=== PATIENT | male | born 1955 | race American Indian/Alaskan Native ===

== ENCOUNTER 2016-12-12 12:48 | Inpatient (IN) | payer OTHER ==
[2016-12-12] MEDS ORDERED: Sodium Chloride 0.9% 1,000 ML IV ONE (13:32)
[2016-12-12] MEDS ORDERED: Sodium Chloride 0.9% 1,000 ML ONE (13:47)
--- NOTE | 2016-12-12 13:55 | C.PDOC ---
History Of Present Illness 61-year-old male, PMHx includes Prostate CA and Chronic Pain, presents to the emergency department with complaints of weakness. Patient states he was walking to the pharmacy today when he developed generalized weakness, resulting in him coming to the ED for evaluation. States he is currently taking Percocet TID for chronic pain, and usually drinks 1-2 beers a day. Patient notes going into withdrawal, after not taking the Percocet for a few days, and he is also requesting detox. Denies dizziness, light headedness, chest pain, or any other associated symptoms. No other complaints at this time. Time Seen by Provider: 12/12/16 13:21 Chief Complaint (Nursing): Weakness/Neurological Deficit History Per: Patient History/Exam Limitations: no limitations Onset/Duration Of Symptoms: Hrs Current Symptoms Are (Timing): Still Present Past Medical History Reviewed: Historical Data, Nursing Documentation, Vital Signs Vital Signs: Last Vital Signs Temp 98.2 F 12/12/16 12:58 Pulse 83 12/12/16 12:58 Resp 16 12/12/16 12:58 BP 116/72 12/12/16 12:58 Pulse Ox 100 12/12/16 13:56 - Medical History PMH: Asthma - [facility] Procedures APPLICATION OF SPLINT (11/24/12) PSYCHIAT DRUG THERAP NEC (03/10/07) Family History: States: No Known Family Hx - Social History Hx Tobacco Use: Yes Hx Alcohol Use: Yes Hx Substance Use: No - Immunization History Hx Tetanus Toxoid Vaccination: No Hx Influenza Vaccination: No Hx Pneumococcal Vaccination: No Review Of Systems Except As Marked, All Systems Reviewed And Found Negative. Constitutional: Positive for: Weakness (generalized). Negative for: Fever Cardiovascular: Negative for: Chest Pain Respiratory: Negative for: Shortness of Breath Gastrointestinal: Negative for: Nausea, Vomiting Physical Exam - Physical Exam Appears: Non-toxic, No Acute Distress Skin: Warm, Dry, No Rash Head: Atraumatic, Normacephalic Eye(s): bilateral: Normal Inspection, PERRL Nose: Normal Oral Mucosa: Moist Lips: Normal Appearing Neck: Normal ROM Chest: Symmetrical Cardiovascular: Rhythm Regular, No Murmur Respiratory: Normal Breath Sounds, No Accessory Muscle Use Gastrointestinal/Abdominal: Soft, No Tenderness Extremity: Normal ROM Neurological/Psych: Oriented x3, Normal Speech, Other (No focal deficit) ED Course And Treatment - Laboratory Results Result Diagrams: 12/12/16 13:58 12/12/16 13:58 Lab Interpretation: Abnormal (WBC 2.4 Hgb 11.4,) O2 Sat by Pulse Oximetry: 100 Pulse Ox Interpretation: Normal Reevaluation Time: 15:27 Reassessment Condition: Improved (after IV fluids and food.) - Physician Consult Information Physician Contacted: Yehuda Hi Outcome Of Conversation: Patient to be admitted for weakness, neutropenia and opiate detox. Disposition - Disposition Disposition: HOSPITALIZED Disposition Time: 15:28 Condition: STABLE Instructions: Weakness (ED) - POA Present On Arrival: None - Clinical Impression Clinical Impression: Weakness generalized, Prostate cancer, Opiate dependence - Scribe Statement The provider has reviewed the documentation as recorded by the Scribe (Flavio Arevalo) All medical record entries made by the Scribe were at my direction and personally dictated by me. I have reviewed the chart and agree that the record accurately reflects my personal performance of the history, physical exam, medical decision making, and the department course for this patient. I have also personally directed, reviewed, and agree with the discharge instructions and disposition.
[2016-12-12 14:02] LABS: BASO % 0.7 % (0.0-2.0); EOS % 0.7 % (0.0-4.0); HEMOGLOBIN 11.4 g/dL (12.0-18.0); LYMPH # 0.8 K/uL (1.0-4.3); MEAN CELL VOLUME 94.9 fL (80.0-94.0); MEAN CORPUSCULAR HEMOGLOBIN 32.1 pg (27.0-31.0); MEAN CORPUSCULAR HGB CONC 33.8 g/dL (33.0-37.0); MEAN PLATELET VOLUME 9.1 fL (7.2-11.7); MONO # 0.4 K/uL (0.0-0.8); MONO % 14.6 % (0.0-10.0); NEUT # 1.2 K/uL (1.8-7.0); NRBC % 0.3 % (0.0-2.0); RBC 3.56 Mil/uL (4.40-5.90); RED CELL DISTRIBUTION WIDTH 14.5 % (11.5-14.5); WHITE BLOOD COUNT 2.4 K/uL (4.8-10.8)
[2016-12-12 14:32] LABS: ALBUMIN 3.7 g/dL (3.5-5.0)
[2016-12-12 14:35] LABS: ALB/GLOB RATIO 1.5 (1.0-2.1); AST/SGOT 51 U/L (17-59); BLOOD UREA NITROGEN 11 mg/dL (9-20); GFR AFRICAN-AMERICAN > 60; GFR NON-AFRICAN AMERICAN > 60
[2016-12-12 14:36] LABS: ALT/SGPT 55 U/L (21-72); CALCIUM 8.7 mg/dl (8.6-10.4)
[2016-12-12 16:09] LABS: SQUAMOUS EPITHIAL < 1 /hpf (0-5); URINE BILIRUBIN 1+ (NEGATIVE); URINE BLOOD NEGATIVE (NEGATIVE); URINE CLARITY Clear (Clear); URINE COLOR Yellow (YELLOW); URINE GLUCOSE (UA) NORMAL (Normal); URINE LEUKOCYTE ESTERASE NEG Leu/uL (Negative); URINE NITRATE NEGATIVE (NEGATIVE); URINE PROTEIN 1+ mg/dL (NEGATIVE)
[2016-12-12 16:10] LABS: BARBITURATES, UR NEGATIVE (NEGATIVE)
[2016-12-12 16:11] LABS: BENZODIAZEPINES, UR NEGATIVE (NEGATIVE)
[2016-12-12 16:15] LABS: PHENCYCLIDINE, UR NEGATIVE (NEGATIVE)
[2016-12-12 16:16] LABS: OPIATES, UR POSITIVE (NEGATIVE)
[2016-12-12] MEDS ORDERED: Folic Acid 1 MG, Thiamine 100 MG, Multivitamin (MVI) 10 ML in Dextrose 5% In Water 1,00... IV SCH (21:00)
[2016-12-13 07:30] LABS: MEAN PLATELET VOLUME 9.5 fL (7.2-11.7)
[2016-12-13 07:50] LABS: HEMOGLOBIN 11.4 g/dL (12.0-18.0); MEAN CELL VOLUME 94.4 fL (80.0-94.0); MEAN CORPUSCULAR HEMOGLOBIN 32.1 pg (27.0-31.0); RBC 3.56 Mil/uL (4.40-5.90); RED CELL DISTRIBUTION WIDTH 14.6 % (11.5-14.5)
[2016-12-13 07:51] LABS: WHITE BLOOD COUNT 11.7 K/uL (4.8-10.8)
[2016-12-13 08:12] LABS: GFR AFRICAN-AMERICAN > 60; GFR NON-AFRICAN AMERICAN > 60
[2016-12-13 08:13] LABS: BLOOD UREA NITROGEN 11 mg/dL (9-20); CALCIUM 8.7 mg/dl (8.6-10.4)
[2016-12-13] MEDS ORDERED: Albuterol-Ipratrop 3 mg / 0.5 (3 ml) UD INH PRN (08:30)
[2016-12-13] MEDS: Enoxaparin 40 mg Syringe SC SCH (09:43)
[2016-12-13] MEDS ORDERED: Potassium Chloride 20 mEq ER Tab PO ONE (10:00)
[2016-12-13] MEDS ORDERED: Tramadol 25 mg PO SCH (10:00)
[2016-12-13] MEDS ORDERED: Pneumococcal 23-Valent Vaccine IM ONE (10:00)
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
[2016-12-13] MEDS: Tramadol 25 mg PO PRN (16:34)
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
[2016-12-14] MEDS ORDERED: Folic Acid 1 MG, Thiamine 100 MG, Multivitamin (MVI) 10 ML in Dextrose 5% In Water 1,00... IV SCH ×2 (02:45→11:45)
[2016-12-14] MEDS: Tramadol 25 mg PO PRN (06:27)
[2016-12-14 07:27] LABS: BASO # 0.4 K/uL (0.0-0.2); EOS # 0.1 K/uL (0.0-0.7); EOS % 0.2 % (0.0-4.0); HEMOGLOBIN 10.8 g/dL (12.0-18.0); LYMPH # 3.7 K/uL (1.0-4.3); MEAN CELL VOLUME 96.1 fL (80.0-94.0); MEAN CORPUSCULAR HEMOGLOBIN 31.2 pg (27.0-31.0); MEAN CORPUSCULAR HGB CONC 32.5 g/dL (33.0-37.0); MEAN PLATELET VOLUME 8.9 fL (7.2-11.7); MONO # 0.1 K/uL (0.0-0.8); MONO % 0.3 % (0.0-10.0); NEUT # 37.1 K/uL (1.8-7.0); NEUT % 89.5 % (50.0-75.0); NRBC % 0.1 % (0.0-2.0); PLATELET COUNT 237 K/uL (130-400); RBC 3.48 Mil/uL (4.40-5.90); RED CELL DISTRIBUTION WIDTH 15.4 % (11.5-14.5)
[2016-12-14 07:40] LABS: WHITE BLOOD COUNT 41.4 K/uL (4.8-10.8)
[2016-12-14 07:42] LABS: GFR AFRICAN-AMERICAN > 60; GFR NON-AFRICAN AMERICAN > 60
[2016-12-14 07:43] LABS: BLOOD UREA NITROGEN 11 mg/dL (9-20)
[2016-12-14 07:44] LABS: CALCIUM 8.7 mg/dl (8.6-10.4)
[2016-12-14] MEDS: Enoxaparin 40 mg Syringe SC SCH ×2 (08:31→09:15)
[2016-12-14 08:40] LABS: LYMPHOCYTE 11 % (20-40); NEUTROPHIL 25 % (50-75); TOTAL CELLS COUNTED 100
[2016-12-14 08:41] LABS: MONOCYTE 11 % (0-10)
[2016-12-14 08:42] LABS: MYELOCYTE 14 % (0-0); PLATELET ESTIMATE NORMAL (NORMAL)
[2016-12-14 08:44] LABS: METAMYELOCYTE 8 % (0-0); PROMYELOCYTE 10 % (0-0); REACTIVE LYMPHOCYTES 9 % (0-0)
[2016-12-14 08:45] LABS: ANISOCYTOSIS SLIGHT; POIKILOCYTOSIS SLIGHT
[2016-12-14 08:46] LABS: BURR CELLS SLIGHT; HYPOCHROMIC SLIGHT
[2016-12-14 08:47] LABS: LARGE PLATELETS PRESENT; MICROCYTOSIS SLIGHT; SMUDGE CELLS PRESENT; TARGET CELLS SLIGHT
[2016-12-14 08:51] LABS: BANDS 12 % (0-2)
[2016-12-14 10:00] VITALS: BP 149/76; PULSE 76; RESP 23; TEMP 98.2; O2SAT 97
[2016-12-14 11:46] LABS: BASO # 0.4 K/uL (0.0-0.2); BASO % 0.7 % (0.0-2.0); EOS # 0.1 K/uL (0.0-0.7); EOS % 0.1 % (0.0-4.0); HEMOGLOBIN 11.7 g/dL (12.0-18.0); LYMPH # 4.4 K/uL (1.0-4.3); LYMPH % 8.2 % (20.0-40.0); MEAN CELL VOLUME 96.2 fL (80.0-94.0); MEAN CORPUSCULAR HEMOGLOBIN 30.6 pg (27.0-31.0); MEAN CORPUSCULAR HGB CONC 31.8 g/dL (33.0-37.0); MEAN PLATELET VOLUME 9.3 fL (7.2-11.7); MONO # 0.2 K/uL (0.0-0.8); MONO % 0.3 % (0.0-10.0); NEUT # 48.6 K/uL (1.8-7.0); NEUT % 90.7 % (50.0-75.0); NRBC % 0.1 % (0.0-2.0); PLATELET COUNT 269 K/uL (130-400); RBC 3.81 Mil/uL (4.40-5.90); RED CELL DISTRIBUTION WIDTH 15.2 % (11.5-14.5)
[2016-12-14 11:53] LABS: WHITE BLOOD COUNT 53.6 K/uL (4.8-10.8)
[2016-12-14 12:25] LABS: BANDS 13 % (0-2); LYMPHOCYTE 7 % (20-40); METAMYELOCYTE 8 % (0-0); MONOCYTE 16 % (0-10); MYELOCYTE 16 % (0-0); NEUTROPHIL 31 % (50-75); PROMYELOCYTE 7 % (0-0); REACTIVE LYMPHOCYTES 2 % (0-0); TOTAL CELLS COUNTED 100
[2016-12-14 12:26] LABS: ANISOCYTOSIS SLIGHT; HYPOCHROMIC SLIGHT; PLATELET ESTIMATE NORMAL (NORMAL); POIKILOCYTOSIS SLIGHT
[2016-12-14 12:27] LABS: LARGE PLATELETS PRESENT; SMUDGE CELLS PRESENT; TARGET CELLS SLIGHT; TEARDROP CELLS SLIGHT
--- NOTE | 2016-12-14 12:37 | PCM.PYCHPN ---
Psychiatric Progress Note - Psychiatric Progress Note Patient seen today, length of contact: 16 min Patient Chief Complaint: "I'm better" Problems Identified/Issues Discussed: The pt is seen, chart reviewed, case discussed with staff. Support given, CBT and AL used briefly No new symptoms reported, improving slowly and needs more time No SEs from medications, risks discussed. After care discussed and he is not very interested in anything but he claims he will stay clean. How to dispose his Oxycontins safely discussed (he will return them to a pharmacy or precicnt) His wbc is very high - [employer] knows Psych will sign off as he is stable and has one last dose of methadone in AM Medication Change: Yes (detox changes daily) Medical Record Reviewed: Yes Mental Status Examination - Cognitive Function Orientation: Person, Place, Situation, Time - Mood Mood: Anxious - Affect Affect: Depressed - Formal Thought Process Formal Thought Process: No Impairment Goal/Treatment Plan - Goal/Treatment Plan Need for Continued Stay: Other Progress Toward Problem(s) and Goals/Treatment Plan: Methadone detox ending tomorrow Gabapentin for augmentation As needed meds and vitamins AL for abstinence and CBT for relapse prevention Support and psychoeducation Consider and encourage MAT Psych will sign off
== END 2016-12-14 13:30 | disposition left against medical advice (07) | DRG 743 ==
LOC: C.ER 12:48 → C.3T 15:30 → C.9E 17:32 → C.3T 18:53 → OBSVTOIN 12-13 11:17
PROVIDERS: ADMIT Internal Medicine; ATTEND Internal Medicine
PROC: HZ56ZZZ Individual Psychotherapy for Substance Abuse Treatment, Psychoeducation (ICD-10-PCS; principal; 2016-12-13)
PROC: HZ59ZZZ Individual Psychotherapy for Substance Abuse Treatment, Supportive (ICD-10-PCS; 2016-12-13)
PROC: HZ2ZZZZ Detoxification Services for Substance Abuse Treatment (ICD-10-PCS; 2016-12-13)
PROC: HZ93ZZZ Pharmacotherapy for Substance Abuse Treatment, Antabuse (ICD-10-PCS; 2016-12-13)
DX: F11.23 Opioid dependence with withdrawal (principal); F17.210 Nicotine dependence, cigarettes, uncomplicated; G89.29 Other chronic pain; R53.1 Weakness; Z85.46 Personal history of malignant neoplasm of prostate; M54.9 Dorsalgia, unspecified

== ENCOUNTER 2017-05-09 19:12 | Inpatient (IN) | payer OTHER ==
--- NOTE | 2017-05-09 20:36 | C.PDOC ---
History Of Present Illness 61 year old male presents to the ED c/o productive cough with yellowish sputum. Patient also c/o numbness in his legs, patient reports having bone cancer has been on chemo for 18 months he states he called his PMD today who told him to come to the ED for evaluation. Patient states also he wants detox for alcohol consumption he states he drinks everyday. Patient denies fever, nausea, vomit, abdominal pain, back pain, headache. Time Seen by Provider: 05/09/17 20:11 Chief Complaint (Nursing): Lower Extremity Problem/Injury History Per: Patient History/Exam Limitations: no limitations Onset/Duration Of Symptoms: Days Current Symptoms Are (Timing): Gone Recent travel outside of the [place]: No Additional History Per: Patient Past Medical History Reviewed: Historical Data, Nursing Documentation, Vital Signs Vital Signs: Last Vital Signs Temp 100.0 F H 05/09/17 23:48 Pulse 108 H 05/09/17 23:48 Resp 18 05/09/17 23:48 BP 129/69 05/09/17 23:48 Pulse Ox 90 L 05/09/17 23:48 - Medical History PMH: Arthritis (BACK), Asthma Surgical History: No Surg Hx - [facility] Procedures APPLICATION OF SPLINT (11/24/12) DETOXIFICATION SERVICES FOR SUBSTANCE ABUSE TREATMENT (12/13/16) INDIV PSYCHOTHERAPY FOR SUBSTANCE ABUSE TREATMENT, SUPPORT (12/13/16) INDIV PSYCHOTHERAPY FOR SUBSTANCE ABUSE, PSYCHOEDUCATION (12/13/16) PHARMACOTHERAPY FOR SUBSTANCE ABUSE TREATMENT, ANTABUSE (12/13/16) PSYCHIAT DRUG THERAP NEC (03/10/07) Family History: States: Unknown Family Hx - Social History Hx Tobacco Use: Yes Hx Alcohol Use: Yes (2 beers/day) Hx Substance Use: Yes (cocaine) - Immunization History Hx Tetanus Toxoid Vaccination: No Hx Influenza Vaccination: No Hx Pneumococcal Vaccination: No Review Of Systems Constitutional: Negative for: Fever, Chills Cardiovascular: Negative for: Chest Pain, Palpitations Respiratory: Positive for: Cough, Sputum. Negative for: Shortness of Breath Gastrointestinal: Negative for: Nausea, Vomiting, Abdominal Pain Skin: Negative for: Rash Neurological: Positive for: Weakness. Negative for: Numbness Physical Exam - Physical Exam Appears: Non-toxic, No Acute Distress Skin: Normal Color, Warm, Dry Head: Atraumatic, Normacephalic Nose: No Discharge Oral Mucosa: Moist Neck: Normal ROM, Supple Chest: Symmetrical Cardiovascular: Rhythm Regular, No Murmur Respiratory: Normal Breath Sounds, No Rales, No Rhonchi, No Wheezing Gastrointestinal/Abdominal: Soft, No Tenderness, No Distention, No Rebound Extremity: Normal ROM, No Pedal Edema, No Calf Tenderness, No Swelling Neurological/Psych: Oriented x3, Normal Speech, Normal Cognition Gait: Steady ED Course And Treatment - Laboratory Results Result Diagrams: 05/09/17 20:45 05/09/17 20:45 O2 Sat by Pulse Oximetry: 95 (On RA) Pulse Ox Interpretation: Normal Medical Decision Making Medical Decision Making: Impression : productive cough, detox request Plan: * Blood work * UA * CXR Disposition Discussed With Dr.: Elijah Galindo Jr. - Disposition Disposition: HOSPITALIZED Disposition Time: 13:50 Condition: STABLE Forms: [facility] (Serbian) - Clinical Impression Clinical Impression: Leukocytosis, Alcoholism - Scribe Statement The provider has reviewed the documentation as recorded by the Scribe Eleazar Moon All medical record entries made by the Scribe were at my direction and personally dictated by me. I have reviewed the chart and agree that the record accurately reflects my personal performance of the history, physical exam, medical decision making, and the department course for this patient. I have also personally directed, reviewed, and agree with the discharge instructions and disposition.
[2017-05-09 21:02] LABS: BASO # 0.1 K/uL (0.0-0.2); BASO % 0.4 % (0.0-2.0); EOS # 0.1 K/uL (0.0-0.7); EOS % 0.3 % (0.0-4.0); HEMATOCRIT 34.1 % (35.0-51.0); LYMPH # 1.8 K/uL (1.0-4.3); LYMPH % 6.1 % (20.0-40.0); MEAN CELL VOLUME 95.7 fL (80.0-94.0); MEAN CORPUSCULAR HEMOGLOBIN 31.8 pg (27.0-31.0); MEAN CORPUSCULAR HGB CONC 33.2 g/dL (33.0-37.0); MEAN PLATELET VOLUME 8.7 fL (7.2-11.7); MONO # 0.5 K/uL (0.0-0.8); MONO % 1.7 % (0.0-10.0); NRBC % 0.2 % (0.0-2.0); PLATELET COUNT 251 K/uL (130-400); RED CELL DISTRIBUTION WIDTH 14.4 % (11.5-14.5); WHITE BLOOD COUNT 30.2 K/uL (4.8-10.8)
[2017-05-09 21:05] LABS: ALCOHOL SERUM 85 mg/dl (0-10); ALKALINE PHOSPHATASE 113 U/L (38-126); ALT/SGPT 56 U/L (21-72); AST/SGOT 46 U/L (17-59); BILIRUBIN,TOTAL 0.4 mg/dL (0.2-1.3); BLOOD UREA NITROGEN 11 mg/dL (9-20); CALCIUM 8.1 mg/dl (8.6-10.4); CARBON DIOXIDE 30 mmol/L (22-30); CHLORIDE 93 mmol/L (98-107); GFR AFRICAN-AMERICAN > 60; GLUCOSE,RANDOM 94 mg/dL (75-110); POTASSIUM 3.5 mmol/L (3.6-5.2); SODIUM 133 mmol/L (132-148)
[2017-05-09 21:10] LABS: ALB/GLOB RATIO 1.9 (1.0-2.1)
[2017-05-09 21:15] LABS: RBC URINE 5 /hpf (0-3); URINE BILIRUBIN NEGATIVE (NEGATIVE); URINE BLOOD NEGATIVE (NEGATIVE); URINE COLOR Yellow (YELLOW); URINE GLUCOSE (UA) NORMAL (Normal); URINE HYALINE CAST 0-2 /lpf (0-2); URINE KETONE TRACE mg/dL (NEGATIVE); URINE LEUKOCYTE ESTERASE NEG Leu/uL (Negative); URINE PROTEIN 1+ mg/dL (NEGATIVE); WBC URINE 6 /hpf (0-5)
[2017-05-09 22:00] LABS: METAMYELOCYTE 4 % (0-0); MYELOCYTE 1 % (0-0); NEUTROPHIL 73 % (50-75); TOTAL CELLS COUNTED 100
[2017-05-10] MEDS ORDERED: Potassium Chloride 20 mEq ER Tab PO ONE (01:25)
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
[2017-05-10 05:00] VITALS: RESP 20
[2017-05-10 07:14] LABS: BASO # 0.1 K/uL (0.0-0.2); BASO % 0.3 % (0.0-2.0); EOS % 0.1 % (0.0-4.0); HEMATOCRIT 33.4 % (35.0-51.0); LYMPH # 2.1 K/uL (1.0-4.3); LYMPH % 7.7 % (20.0-40.0); MEAN CELL VOLUME 94.9 fL (80.0-94.0); MEAN CORPUSCULAR HEMOGLOBIN 31.1 pg (27.0-31.0); MEAN CORPUSCULAR HGB CONC 32.8 g/dL (33.0-37.0); MEAN PLATELET VOLUME 8.1 fL (7.2-11.7); MONO # 2.2 K/uL (0.0-0.8); MONO % 7.9 % (0.0-10.0); NRBC % 0.1 % (0.0-2.0); PLATELET COUNT 267 K/uL (130-400); RED CELL DISTRIBUTION WIDTH 14.6 % (11.5-14.5); WHITE BLOOD COUNT 27.6 K/uL (4.8-10.8)
[2017-05-10 07:55] LABS: ALB/GLOB RATIO 1.8 (1.0-2.1); ALKALINE PHOSPHATASE 96 U/L (38-126); ALT/SGPT 50 U/L (21-72); AST/SGOT 48 U/L (17-59); BILIRUBIN,TOTAL 0.5 mg/dL (0.2-1.3); BLOOD UREA NITROGEN 16 mg/dL (9-20); CALCIUM 8.3 mg/dl (8.6-10.4); CARBON DIOXIDE 31 mmol/L (22-30); CHLORIDE 99 mmol/L (98-107); GFR AFRICAN-AMERICAN > 60; GLUCOSE,RANDOM 124 mg/dL (75-110); MAGNESIUM 1.8 mg/dL (1.6-2.3); POTASSIUM 4.2 mmol/L (3.6-5.2); SODIUM 135 mmol/L (132-148); TOTAL PROTEIN 5.5 g/dL (6.3-8.3)
--- NOTE | 2017-05-10 08:20 | RAD ---
Chest x-ray single frontal view History: Detox. Comparison: None available. Findings: Hyperinflation suggestive for COPD and or emphysematous changes. Few scattered nodular densities seen within the mid lung zones bilaterally may represent prominent vessels on end. Comparison to prior studies and or continued interval follow-up chest CT may be helpful to exclude underlying pulmonary nodules. Heart size within normal limits. Impression: No focal infiltrate or effusion. Few scattered nodular densities in both lungs. Correlation with prior study and or correlation with chest CT may be helpful to exclude underlying pulmonary nodules. Clinical correlation.
[2017-05-10 09:20] LABS: METAMYELOCYTE 3 % (0-0); MYELOCYTE 2 % (0-0); NEUTROPHIL 68 % (50-75); NUCLEATED RED BLOOD CELL 2 % (0-0); TOTAL CELLS COUNTED 100
[2017-05-10] MEDS: Pantoprazole 40 mg EC Tab PO SCH (09:45)
[2017-05-10] MEDS: Azithromycin 500 MG in Sodium Chloride 0.9% 250 ML IVPB SCH (09:46)
[2017-05-10] MEDS: Enoxaparin 40 mg Syringe SC SCH (09:47)
[2017-05-10 11:31] LABS: PROSTATE SPECIFIC ANTIGEN 161 ng/mL (0.00-4.0)
--- NOTE | 2017-05-10 13:14 | CP.PCM.PN ---
Subjective - Date & Time of Evaluation Date of Evaluation: 05/10/17 Time of Evaluation: 13:09 - Subjective Subjective: PGY-[address] Galindo's service: Pt seen and examined at bedside. Nursing reports patient requesting percocet pain medication which he receives at home. Patient provided number to pharmacy which verified his prescription. Patient states he has had low back pain "for some time" due to DJD but has gotten worse recently. He feels numbness "between his knees and his feet" but denies saddle anesthesia, or episodes of incontinence. He reports persistent cough and is still producing yellow/green sputum. He denies denies fever, chills, chest pain, palpitations or abdominal pain. Objective - Vital Signs/Intake and Output Vital Signs (last 24 hours): Temp Pulse Resp BP Pulse Ox 98 F 83 20 121/72 98 05/10/17 08:47 05/10/17 08:47 05/10/17 08:47 05/10/17 08:47 05/10/17 08:47 Intake and Output: 05/10/17 05/10/17 06:59 18:59 Intake Total 300 Balance 300 - Medications Medications: Current Medications Acetaminophen (Tylenol 325mg Tab) 650 mg PO Q6 PRN PRN Reason: Fever >100.4 F Docusate Sodium (Colace) 100 mg PO BID [facility] Last Admin: 05/10/17 09:46 Dose: 100 mg Enoxaparin Sodium (Lovenox) 40 mg SC DAILY [facility] Last Admin: 05/10/17 09:47 Dose: Not Given Azithromycin 500 mg/ Sodium (Chloride) 250 mls @ 250 mls/hr IVPB DAILY [facility] Last Admin: 05/10/17 09:46 Dose: 250 mls/hr Ceftriaxone Sodium 1 gm/ (Sodium Chloride) 100 mls @ 100 mls/hr IVPB DAILY [facility] Last Admin: 05/10/17 09:46 Dose: 100 mls/hr Ketorolac Tromethamine (Toradol) 30 mg IV Q6 PRN PRN Reason: Pain, severe (8-10) Pantoprazole Sodium (Protonix Ec Tab) 40 mg PO DAILY [facility] Last Admin: 05/10/17 09:45 Dose: 40 mg Pneumococcal Polyvalent Vaccine (Pneumovax 23 Vaccine) 0.5 ml IM .ONCE ONE Stop: 05/11/17 10:01 - Labs Labs: 05/10/17 07:05 05/10/17 07:05 PT 11.4 SECONDS (9.7-12.2) 05/10/17 07:05 INR 1.0 05/10/17 07:05 APTT 30 SECONDS (21-34) 05/10/17 07:05 - Constitutional Appears: Non-toxic, No Acute Distress, Cachectic, Chronically Ill - Head Exam Head Exam: ATRAUMATIC, NORMAL INSPECTION - Eye Exam Eye Exam: EOMI, Normal appearance. absent: Scleral icterus Pupil Exam: PERRL - ENT Exam ENT Exam: Mucous Membranes Moist - Neck Exam Neck Exam: absent: Tenderness - Respiratory Exam Respiratory Exam: Clear to Ausculation Bilateral. absent: Rhonchi - Cardiovascular Exam Cardiovascular Exam: RRR, +S1, +S2, Murmur - GI/Abdominal Exam GI & Abdominal Exam: Soft, Normal Bowel Sounds - Extremities Exam Extremities Exam: Normal Inspection. absent: Pedal Edema, Tenderness - Back Exam Back Exam: absent: CVA tenderness (L), CVA tenderness (R) Additional comments: decreased sensation in toes b/l 5/5 strength b/l LEs episodes of calves cramping b/l throughout exam but non-tender to palpation No pedal edema - Neurological Exam Neurological Exam: Alert, Awake, Oriented x3 - Psychiatric Exam Psychiatric exam: Normal Affect - Skin Skin Exam: Normal Color, Warm Assessment and Plan - Assessment and Plan (Free Text) Plan: Pneumonia vs. Bronchitis vs COPD * Admit to med/surg * Pt admits long smoking history * TMax 100.0 F on admission * Leukocytosis, w Bandemia 5% * CXR (05/09/17): scattered nodular densities in both lungs. CT chest may be helpful to exclude underlying pulm nodules (see full report) * CT Chest (05/10/17): No suspicious pulm nodules. Focal infiltrates, scarring in RML, and RLL. No nodules suggestive of metastatic disease (see full report) * 2L O2 PRN low O2 sat Azithromycin 500mg IV daily (Day 2) Ceftriaxone 1mg IV Daily (day 2) Robitussin for cough Duonebs Q6H PRN SOB f/u atypicals , sputum culture, blood culture, urine culture Metastatic Prostate Cancer * mets to the bone * PSA 161 * Urology, Dr. Lowe * sees pt as opdx, follow up reccs * Hem/Onc, Dr. Pierre * Pts hem/Onc, Dr. Katheryn Parham does not come here, follow up reccs Lower Extremity Numbness * fall risk protocol * possibly 2/2 DJD vs mets to spine * f/u lumbar spine XR Elevated BG * f/u A1C * Accuchecks Macrocytic anemia * Etiology: most likely EtOh abuse * B12: > 1000 * Folate 12 (WNL) * Monitor Hypokalemia * resolved Constipation * Likely 2/2 percocet use - confirmed usage with pharmacy * Colace 100 mg PO BID Stimulant use disorder - UDS positive for cocaine Alcohol use disorder * ETOH 85 on AM level * Folic acid/MV/Thiamine PO Daily * Ativan 1mg IM Q4H PRN for sx of alcohol withdrawal * Monitor for withdrawal symptoms Proteinuria 1+ urine protein - f/u repeat in AM Prophylactic measures * Protonix 40 mg PO QD * Lovenox 40 mg QD * Hold SCDs due to LE pain Quinton Dickerson PGY-2 All medical management per Dr. Galindo
[2017-05-10] MEDS: Oxycodone/Acetaminophen 5/325 mg Tab PO PRN ×2 (16:31→22:28)
[2017-05-10] MEDS ORDERED: Iodixanol 320 MG/ML 100 ML BOTTLE IV ONE (18:01)
--- NOTE | 2017-05-10 19:03 | CT ---
PROCEDURE: CT Chest with contrast HISTORY: Evaluate pulmonary nodules identified on chest x-ray. Relevant medical history: Prostate cancer COMPARISON: May 09, 2017. TECHNIQUE: Contiguous axial images were obtained through the chest with intravenous contrast enhancement. Sagittal and coronal reconstructions were performed. IV contrast: 100 cc Visipaque 320. Radiation dose (DLP): 940.69 mGy-cm. This CT exam was performed using one or more of the following dose reduction techniques: Automated exposure control, adjustment of the mA and/or kV according to patient size, and/or use of iterative reconstruction technique. FINDINGS: LUNGS: Focal infiltrates, scarring identified right middle lobe, right lower lobe. No discrete pulmonary nodules suggestive of metastatic disease identified. MEDIASTINUM: Unremarkable thoracic aorta. No aneurysm or dissection. Normal sized heart. Main pulmonary artery unremarkable. No vascular congestion. No lymphadenopathy. PLEURA: No pleural fluid. No pneumothorax. BONES: Sclerotic metastatic disease identified primarily as punctate foci throughout visualized thoracolumbar spine. UPPER ABDOMEN: Retroperitoneal lymph nodes identified interposed between the aorta and left kidney, left renal artery. The quality of the study in the assessment of upper abdominal structures or there is limited by technical reasons. 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 Pulmonary parenchymal infiltrates. Sclerotic osseous metastatic disease.
[2017-05-10] MEDS ORDERED: Albuterol-Ipratrop 3 mg / 0.5 (3 ml) UD INH PRN (20:51)
[2017-05-10] MEDS: guaiFENesin 100 mg/5 ml Syrup UD PO PRN (22:28)
--- NOTE | 2017-05-11 06:50 | CP.PCM.PN ---
Subjective - Date & Time of Evaluation Date of Evaluation: 05/11/17 Time of Evaluation: 07:55 - Subjective Subjective: Medicine Note- Dr. Galindo's service Patient was seen and examined at bedside. Patient states he still has numbness and tingling radiating down both his legs. He still has pain in his back, but says it is well controlled on the percocet. Patient reports no additional complaints at this time. No events overnight, per nursing. Objective - Vital Signs/Intake and Output Vital Signs (last 24 hours): Temp Pulse Resp BP Pulse Ox 98.2 F 72 20 128/80 94 L 05/11/17 00:00 05/11/17 00:00 05/11/17 00:00 05/11/17 00:00 05/11/17 00:00 Intake and Output: 05/10/17 05/11/17 18:59 06:59 Intake Total 750 850 Balance 750 850 - Medications Medications: Current Medications Acetaminophen (Tylenol 325mg Tab) 650 mg PO Q6 PRN PRN Reason: Fever >100.4 F Albuterol/Ipratropium (Duoneb 3 Mg/0.5 Mg (3 Ml) Ud) 3 ml INH RQ6 PRN PRN Reason: Shortness of Breath Docusate Sodium (Colace) 100 mg PO BID [facility] Last Admin: 05/10/17 18:17 Dose: Not Given Enoxaparin Sodium (Lovenox) 40 mg SC DAILY [facility] Last Admin: 05/10/17 09:47 Dose: Not Given Folic Acid (Folic Acid) 1 mg PO DAILY [facility] Guaifenesin (Robitussin) 100 mg PO Q4H PRN PRN Reason: Cough Last Admin: 05/10/17 22:28 Dose: 100 mg Azithromycin 500 mg/ Sodium (Chloride) 250 mls @ 250 mls/hr IVPB DAILY [facility] Last Admin: 05/10/17 09:46 Dose: 250 mls/hr Ceftriaxone Sodium 1 gm/ (Sodium Chloride) 100 mls @ 100 mls/hr IVPB DAILY [facility] Last Admin: 05/10/17 09:46 Dose: 100 mls/hr Lorazepam (Ativan) 1 mg IVP Q4H PRN PRN Reason: Symptoms of alcohol withdrawl Multivitamins (Hexavitamin) 1 tab PO DAILY [facility] Oxycodone/Acetaminophen (Percocet 5/325 Mg Tab) 1 tab PO Q6H PRN PRN Reason: Pain, moderate (4-7) Stop: 05/13/17 16:14 Last Admin: 05/10/17 22:28 Dose: 1 tab Pantoprazole Sodium (Protonix Ec Tab) 40 mg PO DAILY [facility] Last Admin: 05/10/17 09:45 Dose: 40 mg Pneumococcal Polyvalent Vaccine (Pneumovax 23 Vaccine) 0.5 ml IM .ONCE ONE Stop: 05/11/17 10:01 Thiamine HCl (Vitamin B1 Tab) 100 mg PO DAILY [facility] - Labs Labs: 05/10/17 07:05 05/10/17 07:05 PT 11.4 SECONDS (9.7-12.2) 05/10/17 07:05 INR 1.0 05/10/17 07:05 APTT 30 SECONDS (21-34) 05/10/17 07:05 - Constitutional Appears: Non-toxic, No Acute Distress - Head Exam Head Exam: ATRAUMATIC, NORMAL INSPECTION, NORMOCEPHALIC - Eye Exam Pupil Exam: NORMAL ACCOMODATION - ENT Exam ENT Exam: Mucous Membranes Moist - Respiratory Exam Respiratory Exam: Clear to Ausculation Bilateral, NORMAL BREATHING PATTERN. absent: Prolonged Expiratory Phase, Rales, Rhonchi, Wheezes - Cardiovascular Exam Cardiovascular Exam: REGULAR RHYTHM, +S1, +S2 - GI/Abdominal Exam GI & Abdominal Exam: Soft, Normal Bowel Sounds. absent: Tenderness, Diminished Bowel Sounds, Hernia, Hypoactive Bowel Sounds - Extremities Exam Extremities Exam: Normal Capillary Refill - Neurological Exam Neurological Exam: Alert, Awake, Oriented x3 - Psychiatric Exam Psychiatric exam: Normal Affect, Normal Mood - Skin Skin Exam: Dry, Intact, Normal Color, Warm Assessment and Plan - Assessment and Plan (Free Text) Assessment: Pneumonia vs. Bronchitis vs COPD * Admit to med/surg * Pt admits long smoking history * TMax 100.0 F on admission * Leukocytosis- 34.1, w Bandemia 9% * CXR (05/09/17): scattered nodular densities in both lungs. CT chest may be helpful to exclude underlying pulm nodules (see full report) * CT Chest (05/10/17): No suspicious pulm nodules. Focal infiltrates, scarring in RML, and RLL. No nodules suggestive of metastatic disease (see full report) * 2L O2 PRN low O2 sat Azithromycin 500mg IV daily (Day 3) Ceftriaxone 1mg IV Daily (day 3) Robitussin for cough Duonebs Q6H PRN SOB blood culture negative after 24 hours Urine culture pending Sputum culture pending Influenza and legionella negative Mycoplasma pending Metastatic Prostate Cancer * mets to the bone * PSA 161 * Urology, Dr. Lowe * sees pt as opdx, follow up reccs * Hem/Onc, Dr. Pierre * Pts hem/Onc, Dr. Katheryn Parham does not come here, follow up reccs Lower Extremity Numbness * fall risk protocol * possibly 2/2 DJD vs mets to spine * f/u lumbar spine XR Elevated BG * f/u A1C * Accuchecks Macrocytic anemia * Etiology: most likely EtOh abuse * B12: > 1000 * Folate 12 (WNL) * Monitor Hypokalemia * resolved Constipation * Likely 2/2 percocet use - confirmed usage with pharmacy * Colace 100 mg PO BID Stimulant use disorder - UDS positive for cocaine Alcohol use disorder * ETOH 85 on AM level * Folic acid/MV/Thiamine PO Daily * Ativan 1mg IM Q4H PRN for sx of alcohol withdrawal * Monitor for withdrawal symptoms Proteinuria 1+ urine protein - f/u repeat in AM Prophylactic measures * Protonix 40 mg PO QD * Lovenox 40 mg QD * Hold SCDs due to LE pain
[2017-05-11 07:46] LABS: LEGIONELLA AG URINE NEGATIVE (NEGATIVE)
[2017-05-11 08:14] LABS: BASO # 0.2 K/uL (0.0-0.2); BASO % 0.5 % (0.0-2.0); EOS % 0.1 % (0.0-4.0); HEMATOCRIT 33.1 % (35.0-51.0); LYMPH # 2.3 K/uL (1.0-4.3); LYMPH % 6.8 % (20.0-40.0); MEAN CELL VOLUME 96.4 fL (80.0-94.0); MEAN CORPUSCULAR HEMOGLOBIN 32.2 pg (27.0-31.0); MEAN CORPUSCULAR HGB CONC 33.4 g/dL (33.0-37.0); MEAN PLATELET VOLUME 9.1 fL (7.2-11.7); MONO % 5.8 % (0.0-10.0); NRBC % 0.1 % (0.0-2.0); PLATELET COUNT 263 K/uL (130-400); WHITE BLOOD COUNT 34.1 K/uL (4.8-10.8)
[2017-05-11] MEDS: Multiple Vitamins Tab PO SCH (09:05)
[2017-05-11] MEDS: Pantoprazole 40 mg EC Tab PO SCH (09:05)
[2017-05-11] MEDS: guaiFENesin 100 mg/5 ml Syrup UD PO PRN (09:05)
[2017-05-11] MEDS: Enoxaparin 40 mg Syringe SC SCH (09:05)
[2017-05-11] MEDS: Oxycodone/Acetaminophen 5/325 mg Tab PO PRN ×3 (09:06→23:54)
[2017-05-11 09:13] LABS: ALKALINE PHOSPHATASE 106 U/L (38-126); ALT/SGPT 52 U/L (21-72); AST/SGOT 33 U/L (17-59); BILIRUBIN,TOTAL 0.5 mg/dL (0.2-1.3); BLOOD UREA NITROGEN 14 mg/dL (9-20); CALCIUM 8.4 mg/dl (8.6-10.4); CARBON DIOXIDE 32 mmol/L (22-30); CHLORIDE 100 mmol/L (98-107); GFR AFRICAN-AMERICAN > 60; GLUCOSE,RANDOM 107 mg/dL (75-110); MAGNESIUM 1.8 mg/dL (1.6-2.3); PHOSPHOROUS 1.9 mg/dL (2.5-4.5); POTASSIUM 4.4 mmol/L (3.6-5.2); SODIUM 134 mmol/L (132-148); TOTAL PROTEIN 6.5 g/dL (6.3-8.3)
[2017-05-11 09:40] LABS: METAMYELOCYTE 2 % (0-0); MYELOCYTE 3 % (0-0); NEUTROPHIL 53 % (50-75); TOTAL CELLS COUNTED 100
[2017-05-11] MEDS ORDERED: Pneumococcal 23-Valent Vaccine IM ONE (10:00)
[2017-05-11] MEDS ORDERED: Influenza Vaccine 60 mcg/0.5 mL SYR (4YR UP) IM ONE (10:00)
[2017-05-11] MEDS: Azithromycin 500 MG in Sodium Chloride 0.9% 250 ML IVPB SCH (10:50)
--- NOTE | 2017-05-11 10:58 | RAD ---
Lumbar spine three views History: Low back pain. History of prostate cancer. Comparison: None available. Findings: Mild dextro scoliotic curvature of the mid lumbar spine. Prominent disc space narrowing with endplate sclerosis noted at the L4-5 and to a lesser extent L5-S1 levels. Multilevel anterior osteophyte formation in the lower lumbar spine from the L4 through S1 levels. Posterior disc osteophyte complex at the L4-5 level. Lower level facet hypertrophy and sclerosis. Prominent increased sclerosis on the frontal view noted at the right aspect of the L4-5 facet suggestive for prominent facet hypertrophy. Prominent vascular calcifications. Impression: Prominent degenerative changes as described above. If there is concern for metastatic disease, correlation with lumbar spinal MRI and/or bone scan may be helpful if clinically indicated.
[2017-05-11] MEDS: Potassium & Sodium Phosphate PO SCH (19:12)
[2017-05-11] MEDS ORDERED: DiphenhydrAMINE 50 mg/ml Inj IVP ONE (21:00)
[2017-05-12] MEDS: Oxycodone/Acetaminophen 5/325 mg Tab PO PRN ×3 (05:40→19:10)
[2017-05-12] MEDS: Potassium & Sodium Phosphate PO SCH (08:44)
--- NOTE | 2017-05-12 10:08 | CP.PCM.PN ---
Subjective - Date & Time of Evaluation Date of Evaluation: 05/12/17 Time of Evaluation: 09:15 - Subjective Subjective: Medicine Note- Dr. Galindo's service Patient was seen and examined at bedside. Patient reports that he is feeling a bit better. However, he complains that for the last 2 days, he's had frequent watery diarrhea, but has not told the staff because he didn't want to bother them. He is tolerating PO well. No events overnight, as per nursing. Objective - Vital Signs/Intake and Output Vital Signs (last 24 hours): Temp Pulse Resp BP Pulse Ox 98.2 F 72 20 125/57 L 96 05/12/17 00:00 05/12/17 00:00 05/12/17 00:00 05/12/17 00:00 05/12/17 00:00 Intake and Output: 05/12/17 05/12/17 06:59 18:59 Intake Total 900 Balance 900 - Medications Medications: Current Medications Acetaminophen (Tylenol 325mg Tab) 650 mg PO Q6 PRN PRN Reason: Fever >100.4 F Albuterol/Ipratropium (Duoneb 3 Mg/0.5 Mg (3 Ml) Ud) 3 ml INH RQ6 PRN PRN Reason: Shortness of Breath Docusate Sodium (Colace) 100 mg PO BID [facility] Last Admin: 05/11/17 19:12 Dose: Not Given Enoxaparin Sodium (Lovenox) 40 mg SC DAILY [facility] Last Admin: 05/11/17 09:05 Dose: Not Given Folic Acid (Folic Acid) 1 mg PO DAILY [facility] Last Admin: 05/11/17 09:05 Dose: 1 mg Guaifenesin (Robitussin) 100 mg PO Q4H PRN PRN Reason: Cough Last Admin: 05/11/17 09:05 Dose: 100 mg Ceftriaxone Sodium 1 gm/ (Dextrose) 50 mls @ 100 mls/hr IVPB DAILY [facility] Azithromycin 500 mg/ Sodium (Chloride) 250 mls @ 250 mls/hr IVPB DAILY [facility] Lorazepam (Ativan) 1 mg IVP Q4H PRN PRN Reason: Symptoms of alcohol withdrawl Multivitamins (Hexavitamin) 1 tab PO DAILY [facility] Last Admin: 05/11/17 09:05 Dose: 1 tab Oxycodone/Acetaminophen (Percocet 5/325 Mg Tab) 1 tab PO Q6H PRN PRN Reason: Pain, moderate (4-7) Stop: 05/13/17 16:14 Last Admin: 05/12/17 05:40 Dose: 1 tab Pantoprazole Sodium (Protonix Ec Tab) 40 mg PO DAILY [facility] Last Admin: 05/11/17 09:05 Dose: 40 mg Thiamine HCl (Vitamin B1 Tab) 100 mg PO DAILY [facility] Last Admin: 05/11/17 09:05 Dose: 100 mg - Labs Labs: 05/11/17 08:01 05/11/17 08:01 PT 11.4 SECONDS (9.7-12.2) 05/10/17 07:05 INR 1.0 05/10/17 07:05 APTT 30 SECONDS (21-34) 05/10/17 07:05 - Constitutional Appears: Non-toxic, No Acute Distress, Cachectic, Chronically Ill - Head Exam Head Exam: ATRAUMATIC, NORMAL INSPECTION, NORMOCEPHALIC - ENT Exam ENT Exam: Mucous Membranes Moist - Respiratory Exam Respiratory Exam: Rhonchi, NORMAL BREATHING PATTERN - Cardiovascular Exam Cardiovascular Exam: REGULAR RHYTHM, +S1, +S2 - GI/Abdominal Exam GI & Abdominal Exam: Soft, Normal Bowel Sounds. absent: Tenderness, Diminished Bowel Sounds, Hernia, Hypoactive Bowel Sounds - Extremities Exam Extremities Exam: Normal Capillary Refill, Normal Inspection - Neurological Exam Neurological Exam: Alert, Awake, Oriented x3 - Psychiatric Exam Psychiatric exam: Normal Affect, Normal Mood - Skin Skin Exam: Dry, Intact, Normal Color, Warm Assessment and Plan - Assessment and Plan (Free Text) Assessment: Pneumonia vs. Bronchitis vs COPD * Admit to med/surg * Pt admits long smoking history * TMax 100.0 F on admission * Leukocytosis- 34.1, w Bandemia 9% * CXR (05/09/17): scattered nodular densities in both lungs. CT chest may be helpful to exclude underlying pulm nodules (see full report) * CT Chest (05/10/17): No suspicious pulm nodules. Focal infiltrates, scarring in RML, and RLL. No nodules suggestive of metastatic disease (see full report) * 2L O2 PRN low O2 sat Azithromycin 500mg IV daily (Day 3) Ceftriaxone 1mg IV Daily (day 3) Robitussin for cough Duonebs Q6H PRN SOB blood culture negative after 24 hours Urine culture pending Sputum culture pending Influenza and legionella negative Mycoplasma pending Metastatic Prostate Cancer * mets to the bone * PSA 161 * Urology, Dr. Lowe * sees pt as opdx, follow up reccs * Hem/Onc, Dr. Pierre * Pts hem/Onc, Dr. Katheryn Parham does not come here, follow up reccs Lower Extremity Numbness * fall risk protocol * possibly 2/2 DJD vs mets to spine * lumbar X ray shows prominent degenerative changes, prominent disc space narrowing with endplate sclerosis at L4-L5 and L5-S1 (Please see full note) * Ordered Thoracic and Lumbar MRI for possible metastatic disease Diarrhea * Ordered Stool studies (C diff, stool culture, stool leukocytes, ova parasites) Elevated BG * f/u A1C * Accuchecks Macrocytic anemia * Etiology: most likely EtOh abuse * B12: > 1000 * Folate 12 (WNL) * Monitor Hypokalemia * resolved Stimulant use disorder - UDS positive for cocaine Alcohol use disorder * ETOH 85 on AM level * Folic acid/MV/Thiamine PO Daily * Ativan 1mg IM Q4H PRN for sx of alcohol withdrawal * Monitor for withdrawal symptoms Proteinuria 1+ urine protein - f/u repeat in AM Prophylactic measures * Protonix 40 mg PO QD * Lovenox 40 mg QD * Hold SCDs due to LE pain All medical management as per Dr. Galindo
[2017-05-12] MEDS: Pantoprazole 40 mg EC Tab PO SCH (10:11)
[2017-05-12] MEDS: Enoxaparin 40 mg Syringe SC SCH (10:12)
[2017-05-12] MEDS: Multiple Vitamins Tab PO SCH (10:12)
[2017-05-12 11:19] LABS: BASO # 0.3 K/uL (0.0-0.2); BASO % 0.5 % (0.0-2.0); HEMATOCRIT 33.7 % (35.0-51.0); LYMPH # 2.4 K/uL (1.0-4.3); LYMPH % 4.3 % (20.0-40.0); MEAN CELL VOLUME 95.8 fL (80.0-94.0); MEAN CORPUSCULAR HEMOGLOBIN 31.9 pg (27.0-31.0); MEAN CORPUSCULAR HGB CONC 33.3 g/dL (33.0-37.0); MEAN PLATELET VOLUME 8.4 fL (7.2-11.7); MONO # 1.5 K/uL (0.0-0.8); MONO % 2.6 % (0.0-10.0); NRBC % 0.1 % (0.0-2.0); PLATELET COUNT 256 K/uL (130-400); RED CELL DISTRIBUTION WIDTH 14.9 % (11.5-14.5)
[2017-05-12 11:27] LABS: WHITE BLOOD COUNT 55.4 K/uL (4.8-10.8)
[2017-05-12 11:44] LABS: ALB/GLOB RATIO 1.5 (1.0-2.1); ALKALINE PHOSPHATASE 114 U/L (38-126); ALT/SGPT 47 U/L (21-72); AST/SGOT 32 U/L (17-59); BILIRUBIN,TOTAL 0.7 mg/dL (0.2-1.3); BLOOD UREA NITROGEN 18 mg/dL (9-20); CALCIUM 8.6 mg/dl (8.6-10.4); CARBON DIOXIDE 27 mmol/L (22-30); CHLORIDE 97 mmol/L (98-107); GFR AFRICAN-AMERICAN > 60; GLUCOSE,RANDOM 106 mg/dL (75-110); MAGNESIUM 1.5 mg/dL (1.6-2.3); PHOSPHOROUS 1.5 mg/dL (2.5-4.5); POTASSIUM 5.1 mmol/L (3.6-5.2); SODIUM 130 mmol/L (132-148); TOTAL PROTEIN 5.9 g/dL (6.3-8.3)
[2017-05-12 12:18] LABS: METAMYELOCYTE 7 % (0-0); MYELOCYTE 5 % (0-0); TOTAL CELLS COUNTED 100
[2017-05-12 12:25] LABS: NEUTROPHIL 61 % (50-75)
[2017-05-12 15:06] LABS: RBC URINE < 1 /hpf (0-3); URINE BILIRUBIN NEGATIVE (NEGATIVE); URINE BLOOD NEGATIVE (NEGATIVE); URINE COLOR Yellow (YELLOW); URINE GLUCOSE (UA) NORMAL (Normal); URINE KETONE NEGATIVE (NEGATIVE); URINE LEUKOCYTE ESTERASE NEG Leu/uL (Negative); URINE PROTEIN NEGATIVE (NEGATIVE); URINE UROBILINOGEN NORMAL mg/dL (0.2-1.0)
[2017-05-13] MEDS: Oxycodone/Acetaminophen 5/325 mg Tab PO PRN ×2 (03:20→09:31)
[2017-05-13 07:40] VITALS: BP 122/75; PULSE 81; TEMP 98.3; O2SAT 97
[2017-05-13 07:40] LABS: BASO # 0.3 K/uL (0.0-0.2); BASO % 0.5 % (0.0-2.0); HEMATOCRIT 35.9 % (35.0-51.0); LYMPH # 2.5 K/uL (1.0-4.3); LYMPH % 4.6 % (20.0-40.0); MEAN CELL VOLUME 97.1 fL (80.0-94.0); MEAN PLATELET VOLUME 8.3 fL (7.2-11.7); MONO # 1.6 K/uL (0.0-0.8); NRBC % 0.1 % (0.0-2.0); PLATELET COUNT 276 K/uL (130-400); RED CELL DISTRIBUTION WIDTH 15.4 % (11.5-14.5)
[2017-05-13 07:50] LABS: WHITE BLOOD COUNT 54.1 K/uL (4.8-10.8)
[2017-05-13 08:03] LABS: ALB/GLOB RATIO 1.6 (1.0-2.1); ALKALINE PHOSPHATASE 125 U/L (38-126); ALT/SGPT 48 U/L (21-72); AST/SGOT 33 U/L (17-59); BILIRUBIN,TOTAL 0.5 mg/dL (0.2-1.3); BLOOD UREA NITROGEN 22 mg/dL (9-20); CALCIUM 9.3 mg/dl (8.6-10.4); CARBON DIOXIDE 31 mmol/L (22-30); CHLORIDE 100 mmol/L (98-107); GFR AFRICAN-AMERICAN > 60; GLUCOSE,RANDOM 110 mg/dL (75-110); MAGNESIUM 1.7 mg/dL (1.6-2.3); PHOSPHOROUS 1.7 mg/dL (2.5-4.5); SODIUM 135 mmol/L (132-148); TOTAL PROTEIN 6.1 g/dL (6.3-8.3)
--- NOTE | 2017-05-13 08:53 | CP.PCM.PN ---
Subjective - Date & Time of Evaluation Date of Evaluation: 05/13/17 Time of Evaluation: 08:53 - Subjective Subjective: PGY1 Progress Note for Dr. Galindo Patient seen and examined at bedside this morning. Objective - Vital Signs/Intake and Output Vital Signs (last 24 hours): Temp Pulse Resp BP Pulse Ox 98.3 F 81 20 122/75 97 05/13/17 07:37 05/13/17 07:37 05/13/17 07:37 05/13/17 07:37 05/13/17 07:37 Intake and Output: 05/13/17 05/13/17 06:59 18:59 Intake Total 650 Balance 650 - Medications Medications: Current Medications Acetaminophen (Tylenol 325mg Tab) 650 mg PO Q6 PRN PRN Reason: Fever >100.4 F Albuterol/Ipratropium (Duoneb 3 Mg/0.5 Mg (3 Ml) Ud) 3 ml INH RQ6 PRN PRN Reason: Shortness of Breath Docusate Sodium (Colace) 100 mg PO BID [facility] Last Admin: 05/12/17 17:28 Dose: Not Given Enoxaparin Sodium (Lovenox) 40 mg SC DAILY [facility] Last Admin: 05/12/17 10:12 Dose: Not Given Folic Acid (Folic Acid) 1 mg PO DAILY [facility] Last Admin: 05/12/17 10:12 Dose: 1 mg Guaifenesin (Robitussin) 100 mg PO Q4H PRN PRN Reason: Cough Last Admin: 05/11/17 09:05 Dose: 100 mg Ceftriaxone Sodium 1 gm/ (Dextrose) 50 mls @ 100 mls/hr IVPB DAILY [facility] Last Admin: 05/12/17 10:09 Dose: 100 mls/hr Azithromycin 500 mg/ Dextrose 250 mls @ 250 mls/hr IVPB DAILY [facility] Lorazepam (Ativan) 1 mg IVP Q4H PRN PRN Reason: Symptoms of alcohol withdrawl Last Admin: 05/12/17 16:39 Dose: 1 mg Multivitamins (Hexavitamin) 1 tab PO DAILY [facility] Last Admin: 05/12/17 10:12 Dose: 1 tab Oxycodone/Acetaminophen (Percocet 5/325 Mg Tab) 1 tab PO Q6H PRN PRN Reason: Pain, moderate (4-7) Stop: 05/13/17 16:14 Last Admin: 12/18/17 03:20 Dose: 1 tab Pantoprazole Sodium (Protonix Ec Tab) 40 mg PO DAILY [facility] Last Admin: 05/12/17 10:11 Dose: 40 mg Temazepam (Restoril) 15 mg PO HS PRN PRN Reason: Insomnia Last Admin: 05/12/17 20:29 Dose: 15 mg Thiamine HCl (Vitamin B1 Tab) 100 mg PO DAILY [facility] Last Admin: 05/12/17 10:13 Dose: 100 mg - Labs Labs: 05/13/17 07:34 05/13/17 07:34 PT 11.4 SECONDS (9.7-12.2) 05/10/17 07:05 INR 1.0 05/10/17 07:05 APTT 30 SECONDS (21-34) 05/10/17 07:05
[2017-05-13] MEDS: Pantoprazole 40 mg EC Tab PO SCH (09:30)
[2017-05-13] MEDS: Multiple Vitamins Tab PO SCH (09:31)
[2017-05-13 09:40] LABS: METAMYELOCYTE 2 % (0-0); MYELOCYTE 4 % (0-0); NEUTROPHIL 60 % (50-75); NUCLEATED RED BLOOD CELL 1 % (0-0); TOTAL CELLS COUNTED 100
[2017-05-13] MEDS ORDERED: Oxycodone/Acetaminophen 5/325 mg Tab PO PRN (09:42)
[2017-05-13] MEDS: Enoxaparin 40 mg Syringe SC SCH (11:31)
[2017-05-13] MEDS ORDERED: Influenza Vaccine 60 mcg/0.5 mL SYR (4YR UP) IM ONE (11:37)
[2017-05-13] MEDS ORDERED: Pneumococcal 23-Valent Vaccine IM ONE (11:37)
[2017-05-13 13:14] LABS: C DIFF TOXIN A B NEGATIVE (NEGATIVE)
[2017-05-13 15:58] LABS: FECAL LEUKOCYTES NEGATIVE (NEGATIVE)
--- NOTE | 2017-05-14 06:56 | CP.PCM.DIS ---
Provider - Provider Date of Admission: 05/09/17 23:52 Attending physician: Elijah Galindo Jr, MD Consults: Hem/Onc - Dr. Pierre Uro - Dr. Candis Lowe Time Spent in preparation of Discharge (in minutes): 30 Hospital Course - Lab Results Lab Results: Micro Results 05/10/17 01:30 Blood Blood Culture - Preliminary NO GROWTH AFTER 3 DAYS 05/10/17 01:20 Blood Blood Culture - Preliminary NO GROWTH AFTER 3 DAYS 05/11/17 Unknown Urine,Clean Catch Urine Culture - Final No Growth (<1,000 CFU/ML) 05/10/17 13:25 Sputum Gram Stain - Final 05/10/17 13:25 Sputum Sputum Culture - Final NORMAL SAPROPHYTIC HEATHER Most Recent Lab Values WBC 54.1 K/uL (4.8-10.8) H* 05/13/17 07:34 RBC 3.70 Mil/uL (4.40-5.90) L 05/13/17 07:34 Hgb 11.8 g/dL (12.0-18.0) L 05/13/17 07:34 Hct 35.9 % (35.0-51.0) 05/13/17 07:34 MCV 97.1 fL (80.0-94.0) H 05/13/17 07:34 MCH 32.0 pg (27.0-31.0) H 05/13/17 07:34 MCHC 33.0 g/dL (33.0-37.0) 05/13/17 07:34 RDW 15.4 % (11.5-14.5) H 05/13/17 07:34 Plt Count 276 K/uL (130-400) 05/13/17 07:34 MPV 8.3 fL (7.2-11.7) 05/13/17 07:34 Neut % (Auto) 91.9 % (50.0-75.0) H 05/13/17 07:34 Lymph % (Auto) 4.6 % (20.0-40.0) L 05/13/17 07:34 [place] % (Auto) 3.0 % (0.0-10.0) 05/13/17 07:34 Eos % (Auto) 0.0 % (0.0-4.0) 05/13/17 07:34 Baso % (Auto) 0.5 % (0.0-2.0) 05/13/17 07:34 Neut # 49.7 K/uL (1.8-7.0) H 05/13/17 07:34 Lymph # 2.5 K/uL (1.0-4.3) 05/13/17 07:34 [place] # 1.6 K/uL (0.0-0.8) H 05/13/17 07:34 Eos # 0.0 K/uL (0.0-0.7) 05/13/17 07:34 Baso # 0.3 K/uL (0.0-0.2) H 05/13/17 07:34 Neutrophils % (Manual) 60 % (50-75) 05/13/17 07:34 Band Neutrophils % 20 % (0-2) H* 05/13/17 07:34 Lymphocytes % (Manual) 9 % (20-40) L 05/13/17 07:34 Monocytes % (Manual) 5 % (0-10) 05/13/17 07:34 Metamyelocytes % 2 % (0-0) H 05/13/17 07:34 Myelocytes % 4 % (0-0) H 05/13/17 07:34 Nucleated RBC % 1 % (0-0) H 05/13/17 07:34 Toxic Granulation Present 05/12/17 11:06 Dohle Bodies Present 05/12/17 11:06 Platelet Estimate Normal (NORMAL) 05/13/17 07:34 Polychromasia Slight 05/13/17 07:34 Hypochromasia (manual) Slight 05/13/17 07:34 Poikilocytosis (manual Slight 05/12/17 11:06 Anisocytosis (manual) Slight 05/13/17 07:34 Ovalocytes Slight 05/12/17 11:06 PT 11.4 SECONDS (9.7-12.2) 05/10/17 07:05 INR 1.0 05/10/17 07:05 APTT 30 SECONDS (21-34) 05/10/17 07:05 Sodium 135 mmol/L (132-148) 05/13/17 07:34 Potassium 5.0 mmol/L (3.6-5.2) 05/13/17 07:34 Chloride 100 mmol/L (98-107) 05/13/17 07:34 Carbon Dioxide 31 mmol/L (22-30) H 05/13/17 07:34 Anion Gap 9 (10-20) L 05/13/17 07:34 BUN 22 mg/dL (9-20) H 05/13/17 07:34 Creatinine 1.0 mg/dL (0.8-1.5) 05/13/17 07:34 Est GFR ( Amer) > 60 05/13/17 07:34 Est GFR (Non-Af Amer) > 60 05/13/17 07:34 Random Glucose 110 mg/dL (75-110) 05/13/17 07:34 Hemoglobin A1c 5.0 % (4.2-6.5) 05/11/17 08:01 Calcium 9.3 mg/dl (8.6-10.4) 05/13/17 07:34 Phosphorus 1.7 mg/dL (2.5-4.5) L 05/13/17 07:34 Magnesium 1.7 mg/dL (1.6-2.3) 05/13/17 07:34 Total Bilirubin 0.5 mg/dL (0.2-1.3) 05/13/17 07:34 AST 33 U/L (17-59) 05/13/17 07:34 ALT 48 U/L (21-72) 05/13/17 07:34 Alkaline Phosphatase 125 U/L (38-126) 05/13/17 07:34 Total Protein 6.1 g/dL (6.3-8.3) L 05/13/17 07:34 Albumin 3.8 g/dL (3.5-5.0) 05/13/17 07:34 Globulin 2.3 gm/dL (2.2-3.9) 05/13/17 07:34 Albumin/Globulin Ratio 1.6 (1.0-2.1) 05/13/17 07:34 Prostate Specific Ag 161 ng/mL (0.00-4.0) H 05/10/17 07:05 Vitamin B12 > 1000 pg/mL (239-931) H 05/10/17 07:05 Folate 12.0 ng/mL 05/10/17 07:05 Urine Color Yellow (YELLOW) 05/12/17 14:57 Urine Clarity Clear (Clear) 05/12/17 14:57 Urine pH 8.0 (5.0-8.0) 05/12/17 14:57 Ur Specific [place] 1.015 (1.003-1.030) 05/12/17 14:57 Urine Protein Negative mg/dL (NEGATIVE) 05/12/17 14:57 Urine Glucose (UA) Normal mg/dL (Normal) 05/12/17 14:57 Urine Ketones Negative mg/dL (NEGATIVE) 05/12/17 14:57 Urine Blood Negative (NEGATIVE) 05/12/17 14:57 Urine Nitrate Negative (NEGATIVE) 05/12/17 14:57 Urine Bilirubin Negative (NEGATIVE) 05/12/17 14:57 Urine Urobilinogen Normal mg/dL (0.2-1.0) 05/12/17 14:57 Ur Leukocyte Esterase Neg Mihaela/uL (Negative) 05/12/17 14:57 Urine WBC (Auto) 6 /hpf (0-5) H 05/09/17 20:45 Urine RBC (Auto) < 1 /hpf (0-3) 05/12/17 14:57 Ur Squamous Epith Cells < 1 /hpf (0-5) 05/09/17 20:45 Hyaline Casts 0-2 /lpf (0-2) 05/09/17 20:45 Stool Leukocytes, Qual Negative (NEGATIVE) 05/12/17 10:30 Urine Opiates Screen Positive (NEGATIVE) H 05/09/17 20:30 Urine Methadone Screen Negative (NEGATIVE) 05/09/17 20:30 Ur Barbiturates Screen Negative (NEGATIVE) 05/09/17 20:30 Ur Phencyclidine Scrn Negative (NEGATIVE) 05/09/17 20:30 Ur Amphetamines Screen Negative (NEGATIVE) 05/09/17 20:30 U Benzodiazepines Scrn Negative (NEGATIVE) 05/09/17 20:30 U Oth Cocaine Metabols Positive (NEGATIVE) H 05/09/17 20:30 U Cannabinoids Screen Negative (NEGATIVE) 05/09/17 20:30 Alcohol, Quantitative 85 mg/dl (0-10) H 05/09/17 20:45 C. difficile Ag & Toxin Negative (NEGATIVE) 05/12/17 10:30 Influenza Typ A,B (EIA) Negative for flu a/b (NEGATIVE) 05/10/17 22:45 Ur L.pneumophila Ag Negative (NEGATIVE) 05/11/17 Unknown Mycoplasma pneumon IgM Negative (NEGATIVE) 05/11/17 Unknown - Hospital Course Hospital Course: As per admission documentation CC: Cough and LE numbness HPI: Patient is a 61 year old male with a past medical history of metastatic prostate cancer to the bones and degenerative joint disease at L4/L5 level who presents to the ED complaining of cough and lower extremity numbness. Patient said they both started yesterday morning when he woke up. Patient immediately noticed that his legs felt numb and tingly from his toes to his knees. Patient says it comes and goes but right now the numbness is only in his toes. He says nothing makes it better or worse that he has noticed. Patient admits to leg cramping as well but says this is not new and he has had this secondary to his metastatic cancer to the bone. He also admits to jail low back pain secondary to DJD of the lumbar spine. When questioned about the cough patient says it is productive of yellow/green sputum and is associated with nasal congestion. Patient denies taking any cough or decongestant medications. Hospital Course Patient was admitted to the hospital on 05/10/17 for cough with leukocytosis and lower extremity numbness. Patient's WBC was elevated throughout the hospital stay. He was discharged home with the understanding that he was to follow up with his primary care physician within one week. Pneumonia vs. Bronchitis vs COPD * Admit to med/surg * Pt admits long smoking history * TMax 100.0 F on admission * Leukocytosis- 34.1, w Bandemia 9% * CXR (05/09/17): scattered nodular densities in both lungs. CT chest may be helpful to exclude underlying pulm nodules (see full report) * CT Chest (05/10/17): No suspicious pulm nodules. Focal infiltrates, scarring in RML, and RLL. No nodules suggestive of metastatic disease (see full report) * 2L O2 PRN low O2 sat Azithromycin 500mg IV daily (Day 3) Ceftriaxone 1mg IV Daily (day 3) Robitussin for cough Duonebs Q6H PRN SOB blood culture negative after 24 hours Urine culture pending Sputum culture pending Influenza and legionella negative Mycoplasma pending Metastatic Prostate Cancer * mets to the bone * PSA 161 * Urology, Dr. Lowe * sees pt as opdx, follow up reccs * Hem/Onc, Dr. Pierre * Pts hem/Onc, Dr. Katheryn Parham does not come here, follow up reccs Lower Extremity Numbness * fall risk protocol * possibly 2/2 DJD vs mets to spine * lumbar X ray shows prominent degenerative changes, prominent disc space narrowing with endplate sclerosis at L4-L5 and L5-S1 (Please see full note) * Ordered Thoracic and Lumbar MRI for possible metastatic disease Diarrhea * Ordered Stool studies (C diff, stool culture, stool leukocytes, ova parasites) Elevated BG * f/u A1C * Accuchecks Macrocytic anemia * Etiology: most likely EtOh abuse * B12: > 1000 * Folate 12 (WNL) * Monitor Hypokalemia * resolved Stimulant use disorder - UDS positive for cocaine Alcohol use disorder * ETOH 85 on AM level * Folic acid/MV/Thiamine PO Daily * Ativan 1mg IM Q4H PRN for sx of alcohol withdrawal * Monitor for withdrawal symptoms Proteinuria 1+ urine protein - f/u repeat in AM Prophylactic measures * Protonix 40 mg PO QD * Lovenox 40 mg QD * Hold SCDs due to LE pain Discharge instructions Patient is to be discharged home, per Dr. Galindo. Patient is to follow up with his primary care physician within one week of being discharge. Patient is to continue to take his home medications as directed by his primary care physician. Patient is to return to the hospital if any new or worsening symptoms arise. Prescriptions given: Potassium 20 mEq PO daily x 7 days Avodart 0.5 mg PO daily x 7 days Flagyl 500 mg PO q8h x 14 days Alprazolam 1 mg PO q12h x 7 days Imodium 2 mg PO q every loose bowel movement up to 16 mg per day PRN This is only a brief summary of the patient's hospital stay. Please see the EMR for full detail of hospital stay. Discharge Exam - Head Exam Head Exam: ATRAUMATIC, NORMAL INSPECTION, NORMOCEPHALIC Discharge Plan - Discharge Medications Prescriptions: ALPRAZolam [Xanax] 1 mg PO Q12H #14 tab Dutasteride [Avodart] 0.5 mg PO DAILY #7 capsule Loperamide [Imodium] 2 mg PO QID PRN #30 cap PRN Reason: Diarrhea Metronidazole [Flagyl] 500 mg PO Q8H #42 tablet Potassium Chloride [K-Dur 20 mEq ER Tab] 20 meq PO DAILY #7 tab - Follow Up Plan Condition: STABLE Disposition: HOME/ ROUTINE Instructions: Loperamide (By mouth), Alprazolam (By mouth), Potassium Chloride (By mouth), Metronidazole (By mouth), Dutasteride (By mouth), Prostate Cancer ( DC), Leukocytosis (DC), Leukocytosis (GEN), Weakness (GEN), Alcohol Use Disorder (DC) Additional Instructions: Patient is to be discharged home, per Dr. Galindo. Patient is to follow up with his primary care physician within one week of being discharge. Patient is to continue to take his home medications as directed by his primary care physician. Patient is to return to the hospital if any new or worsening symptoms arise. Prescriptions given: Potassium 20 mEq PO daily x 7 days Avodart 0.5 mg PO daily x 7 days Flagyl 500 mg PO q8h x 14 days Alprazolam 1 mg PO q12h x 7 days Imodium 2 mg PO q every loose bowel movement up to 16 mg per day PRN
== END 2017-05-13 12:17 | disposition home or self-care (01) | DRG 89 ==
LOC: C.ER 19:12 → C.9E 23:52 → C.3T 05-10 00:07
PROVIDERS: ADMIT Internal Medicine; ATTEND Internal Medicine
DX: J18.9 Pneumonia, unspecified organism (principal); E87.6 Hypokalemia; C79.51 Secondary malignant neoplasm of bone; C61 Malignant neoplasm of prostate; D53.9 Nutritional anemia, unspecified; D72.829 Elevated white blood cell count, unspecified; F10.239 Alcohol dependence with withdrawal, unspecified; F14.10 Cocaine abuse, uncomplicated; J45.909 Unspecified asthma, uncomplicated; M47.816 Spondylosis without myelopathy or radiculopathy, lumbar region; Y90.4 Blood alcohol level of 80-99 mg/100 ml; K59.00 Constipation, unspecified; T40.2X5A Adverse effect of other opioids, initial encounter

== ENCOUNTER 2017-06-09 03:03 | Emergency (ER) | payer OTHER ==
[2017-06-09 04:23] LABS: BASO % 1.1 % (0.0-2.0); EOS # 0.1 K/uL (0.0-0.7); EOS % 1.9 % (0.0-4.0); HEMOGLOBIN 10.5 g/dL (12.0-18.0); LYMPH # 0.8 K/uL (1.0-4.3); LYMPH % 22.3 % (20.0-40.0); MEAN CELL VOLUME 100.9 fL (80.0-94.0); MEAN CORPUSCULAR HEMOGLOBIN 34.1 pg (27.0-31.0); MEAN CORPUSCULAR HGB CONC 33.8 g/dL (33.0-37.0); MEAN PLATELET VOLUME 8.2 fL (7.2-11.7); MONO # 0.6 K/uL (0.0-0.8); MONO % 16.6 % (0.0-10.0); NEUT % 58.1 % (50.0-75.0); NRBC % 0.2 % (0.0-2.0); RBC 3.07 Mil/uL (4.40-5.90); RED CELL DISTRIBUTION WIDTH 15.6 % (11.5-14.5); WHITE BLOOD COUNT 3.5 K/uL (4.8-10.8)
[2017-06-09 04:32] LABS: ALB/GLOB RATIO 1.4 (1.0-2.1); ALBUMIN 3.3 g/dL (3.5-5.0); ALT/SGPT 47 U/L (21-72); AST/SGOT 51 U/L (17-59); BLOOD UREA NITROGEN 19 mg/dL (9-20); CALCIUM 7.7 mg/dl (8.6-10.4); GFR AFRICAN-AMERICAN > 60; GFR NON-AFRICAN AMERICAN > 60
--- NOTE | 2017-06-09 05:41 | C.PDOC ---
History Of Present Illness Patient c/o b/l LE edema and he requested Detox from alcohol. Patient sts he is homeless and he wasn't able to elevate his legs for few day and noticed that his legs became swollen. Patient denies pain in legs/SOB/chest pain/fever. Chief Complaint (Nursing): Lower Extremity Problem/Injury Past Medical History Reviewed: Historical Data, Nursing Documentation, Vital Signs Vital Signs: Last Vital Signs Temp 97.9 F 06/09/17 06:07 Pulse 64 06/09/17 06:07 Resp 20 06/09/17 06:07 BP 135/82 06/09/17 06:07 Pulse Ox 99 06/09/17 06:07 - Medical History PMH: Arthritis (BACK), Asthma Denies: Chronic Kidney Disease - [facility] Procedures APPLICATION OF SPLINT (11/24/12) DETOXIFICATION SERVICES FOR SUBSTANCE ABUSE TREATMENT (12/13/16) INDIV PSYCHOTHERAPY FOR SUBSTANCE ABUSE TREATMENT, SUPPORT (12/13/16) INDIV PSYCHOTHERAPY FOR SUBSTANCE ABUSE, PSYCHOEDUCATION (12/13/16) PHARMACOTHERAPY FOR SUBSTANCE ABUSE TREATMENT, ANTABUSE (12/13/16) PSYCHIAT DRUG THERAP NEC (03/10/07) Family History: States: Unknown Family Hx - Social History Hx Tobacco Use: Yes Hx Alcohol Use: Yes (2 beers/day) Hx Substance Use: No (denies) - Immunization History Hx Tetanus Toxoid Vaccination: No Hx Influenza Vaccination: No Hx Pneumococcal Vaccination: No Review Of Systems Except As Marked, All Systems Reviewed And Found Negative. Physical Exam - Physical Exam Appears: Non-toxic, Unkempt, Other (appears intoxicated, AOB, slurred speech, unsteady gait.) Skin: Normal Color, No Rash Head: Atraumatic, Normacephalic Chest: No Tenderness Cardiovascular: Rhythm Regular Respiratory: Normal Breath Sounds Gastrointestinal/Abdominal: Soft, No Tenderness Back: No Vertebral Tenderness, No Paraspinal Tenderness Extremity: No Tenderness, Pedal Edema (b/l), No Calf Tenderness, Capillary Refill (<2 sec), No Deformity Pulses: Left Dorsalis Pedis: Normal, Right Dorsalis Pedis: Normal Neurological/Psych: Oriented x3, Normal Speech, Normal Cognition ED Course And Treatment - Laboratory Results Result Diagrams: 06/09/17 04:17 06/09/17 04:17 O2 Sat by Pulse Oximetry: 97 Progress Note: Labs sent, patient was observed in Ed for sobriety. No acute finding in his blood work. On re-evaluation patient feels better, steady gait, normal speech. patient was instructed to f/u in Clinic, keep his legs elevated when possible. return to Ed if feel worse. Disposition - Disposition Referrals: [facility] [Outside] Disposition: HOME/ ROUTINE Disposition Time: 05:41 Condition: GOOD Forms: [facility] (Mosotho) - Clinical Impression Clinical Impression: Alcohol intoxication, Lower extremity edema
[2017-06-09 06:07] VITALS: BP 135/82; PULSE 64; RESP 20; TEMP 97.9
[2017-06-09 06:41] VITALS: O2SAT 97
== END 2017-06-09 06:10 | disposition home or self-care (01) ==
LOC: C.ER 03:03
DX: F10.129 Alcohol abuse with intoxication, unspecified (principal); R60.0 Localized edema; Z59.0 Homelessness; Z87.891 Personal history of nicotine dependence

== ENCOUNTER 2017-07-04 20:10 | Emergency (ER) | payer OTHER ==
[2017-07-04 21:14] VITALS: BP 133/85; PULSE 86; RESP 20; TEMP 99; O2SAT 95
--- NOTE | 2017-07-04 21:57 | C.PDOC ---
History Of Present Illness Patient is a 61 year old male who presents to the ER requesting detox. Has a history of alcohol and cocaine abuse. Patient is receiving chemotherapy for prostate cancer. Currently complains of some ankle swelling. No other physical complaints at this time. Time Seen by Provider: 07/04/17 21:18 Chief Complaint (Nursing): Substance Abuse History Per: Patient History/Exam Limitations: no limitations Onset/Duration Of Symptoms: Days Current Symptoms Are (Timing): Still Present Past Medical History Reviewed: Historical Data, Nursing Documentation, Vital Signs Vital Signs: Last Vital Signs Temp 99 F 07/04/17 21:09 Pulse 86 07/04/17 21:09 Resp 20 07/04/17 22:14 BP 133/85 07/04/17 21:09 Pulse Ox 95 07/05/17 07:07 - Medical History PMH: Arthritis (BACK), Asthma Denies: Chronic Kidney Disease - [facility] Procedures APPLICATION OF SPLINT (11/24/12) DETOXIFICATION SERVICES FOR SUBSTANCE ABUSE TREATMENT (12/13/16) INDIV PSYCHOTHERAPY FOR SUBSTANCE ABUSE TREATMENT, SUPPORT (12/13/16) INDIV PSYCHOTHERAPY FOR SUBSTANCE ABUSE, PSYCHOEDUCATION (12/13/16) PHARMACOTHERAPY FOR SUBSTANCE ABUSE TREATMENT, ANTABUSE (12/13/16) PSYCHIAT DRUG THERAP NEC (03/10/07) Family History: States: Unknown Family Hx - Social History Hx Tobacco Use: Yes Hx Alcohol Use: Yes (2 beers/day) Hx Substance Use: Yes (denies) - Immunization History Hx Tetanus Toxoid Vaccination: No Hx Influenza Vaccination: No Hx Pneumococcal Vaccination: No Review Of Systems Musculoskeletal: Positive for: Other (right ankle swelling). Negative for: Leg Pain Psych: Positive for: Other (substance abuse) Physical Exam - Physical Exam Appears: No Acute Distress, Other (Thin male) Skin: No Rash Extremity: No Tenderness, No Calf Tenderness, Swelling (right ankle swelling), No Other (warmth, erythema) Pulses: Left Dorsalis Pedis: Normal, Right Dorsalis Pedis: Normal Neurological/Psych: Oriented x3, Normal Speech, Normal Cognition, Other (Alert, no focal deficits) ED Course And Treatment O2 Sat by Pulse Oximetry: 95 (RA) Pulse Ox Interpretation: Normal Medical Decision Making Medical Decision Making: Patient is medically stable. Discussed with daycare worker, no detox beds are available. Will d/c patient with list of resources for detox. Disposition Counseled Patient/Family Regarding: Diagnosis, Need For Followup - Disposition Disposition: HOME/ ROUTINE Disposition Time: 21:56 Condition: STABLE Additional Instructions: Call facilities on list given for opening for detox. Instructions: Polysubstance Abuse (ED) Forms: [facility] (Faroese), General Discharge Instructions - Clinical Impression Clinical Impression: Drug dependence - PA / [employer]NAGER / Resident Statement MD/DO has reviewed & agrees with the documentation as recorded. - Scribe Statement The provider has reviewed the documentation as recorded by the Scribe (Amelia Harper) All medical record entries made by the Scribe were at my direction and personally dictated by me. I have reviewed the chart and agree that the record accurately reflects my personal performance of the history, physical exam, medical decision making, and the department course for this patient. I have also personally directed, reviewed, and agree with the discharge instructions and disposition.
== END 2017-07-04 22:14 | disposition home or self-care (01) ==
LOC: C.ER 20:10
DX: F19.20 Other psychoactive substance dependence, uncomplicated (principal)

== ENCOUNTER 2017-07-22 07:50 | Inpatient (IN) | payer MEDICAID, OTHER ==
[2017-07-22 09:15] LABS: URINE BILIRUBIN NEGATIVE (NEGATIVE); URINE BLOOD NEGATIVE (NEGATIVE); URINE CLARITY Clear (Clear); URINE COLOR Yellow (YELLOW); URINE GLUCOSE (UA) NORMAL (Normal); URINE LEUKOCYTE ESTERASE NEG Leu/uL (Negative); URINE NITRATE NEGATIVE (NEGATIVE); URINE PROTEIN NEGATIVE (NEGATIVE); URINE UROBILINOGEN NORMAL mg/dL (0.2-1.0)
[2017-07-22 09:16] LABS: BASO % 1.2 % (0.0-2.0); EOS % 0.1 % (0.0-4.0); HEMOGLOBIN 12.2 g/dL (12.0-18.0); LYMPH # 1.1 K/uL (1.0-4.3); LYMPH % 28.2 % (20.0-40.0); MEAN CORPUSCULAR HEMOGLOBIN 33.3 pg (27.0-31.0); MEAN CORPUSCULAR HGB CONC 34.4 g/dL (33.0-37.0); MEAN PLATELET VOLUME 8.1 fL (7.2-11.7); MONO # 0.6 K/uL (0.0-0.8); MONO % 15.6 % (0.0-10.0); NEUT # 2.1 K/uL (1.8-7.0); NEUT % 54.9 % (50.0-75.0); NRBC % 0.1 % (0.0-2.0); RBC 3.66 Mil/uL (4.40-5.90); RED CELL DISTRIBUTION WIDTH 13.8 % (11.5-14.5); WHITE BLOOD COUNT 3.9 K/uL (4.8-10.8)
--- NOTE | 2017-07-22 09:16 | C.PDOC ---
History Of Present Illness 61 y/o male w/PMHx of polysubstance abuse, presents to the ER requesting a detox from heroin, cocaine, and ETOH. Patient states that his last use was last night. At present time, Patient denies suicidal ideation, homicidal ideation, denies any active physical complaints. Ambulate to ED for evaluation, not in any apparent distress, appears appropriate. Time Seen by Provider: 07/22/17 08:03 Chief Complaint (Nursing): Substance Abuse History Per: Patient History/Exam Limitations: no limitations Past Medical History Reviewed: Historical Data, Nursing Documentation, Vital Signs Vital Signs: Last Vital Signs Temp 98.9 F 07/22/17 12:09 Pulse 69 07/22/17 12:09 Resp 18 07/22/17 12:09 BP 129/72 07/22/17 12:09 Pulse Ox 99 07/22/17 12:09 - Medical History PMH: Arthritis, Asthma, Back Problems Denies: Chronic Kidney Disease - [facility] Procedures APPLICATION OF SPLINT (11/24/12) DETOXIFICATION SERVICES FOR SUBSTANCE ABUSE TREATMENT (12/13/16) INDIV PSYCHOTHERAPY FOR SUBSTANCE ABUSE TREATMENT, SUPPORT (12/13/16) INDIV PSYCHOTHERAPY FOR SUBSTANCE ABUSE, PSYCHOEDUCATION (12/13/16) PHARMACOTHERAPY FOR SUBSTANCE ABUSE TREATMENT, ANTABUSE (12/13/16) PSYCHIAT DRUG THERAP NEC (03/10/07) Family History: States: No Known Family Hx - Social History Hx Tobacco Use: Yes Hx Alcohol Use: Yes Hx Substance Use: Yes - Immunization History Hx Tetanus Toxoid Vaccination: No Hx Influenza Vaccination: No Hx Pneumococcal Vaccination: No Review Of Systems Except As Marked, All Systems Reviewed And Found Negative. Constitutional: Negative for: Fever, Chills Eyes: Negative for: Vision Change ENT: Negative for: Throat Pain Cardiovascular: Negative for: Chest Pain, Palpitations, Edema, Light Headedness Respiratory: Negative for: Cough, Shortness of Breath, Wheezing Gastrointestinal: Negative for: Nausea, Vomiting, Abdominal Pain, Diarrhea Genitourinary: Negative for: Incontinence Musculoskeletal: Negative for: Neck Pain, Back Pain Skin: Negative for: Rash, Bruising Neurological: Negative for: Weakness, Numbness, Seizures, Altered Mental Status , Headache, Dizziness Psych: Negative for: Suicidal ideation Physical Exam - Physical Exam Appears: Well, Non-toxic, No Acute Distress Skin: Normal Color, Warm, No Rash Head: Atraumatic, Normacephalic Eye(s): bilateral: PERRL Nose: No Flaring Oral Mucosa: Moist, No Drooling Tongue: Normal Appearing Lips: Normal Appearing Throat: No Erythema, No Drooling Neck: Trachea Midline, No Midline Cervical Tenderness, No Paracervical Tenderness, No Step Off Deformity, Supple Chest: Symmetrical Cardiovascular: Rhythm Regular, No Murmur, No JVD Respiratory: No Decreased Breath Sounds, No Accessory Muscle Use, No Rales, No Rhonchi, No Stridor, No Wheezing Gastrointestinal/Abdominal: Soft, No Tenderness, No Distention, No Guarding Back: No Vertebral Tenderness Extremity: Normal ROM, No Deformity, No Swelling Neurological/Psych: Oriented x3, Normal Speech, Normal Motor, Normal Sensation, Normal Reflexes ED Course And Treatment - Laboratory Results Result Diagrams: 07/22/17 09:01 07/22/17 09:01 Lab Interpretation: No Acute Changes ECG: Interpreted By Me, Viewed By Me ECG Rhythm: Sinus Rhythm Interpretation Of ECG: SR@66/min, NAD, no acute T wave or ST-T changes. O2 Sat by Pulse Oximetry: 98 (RA) Pulse Ox Interpretation: Normal - Radiology CXR: Interpreted by Me, Viewed By Me CXR Interpretation: Yes: No Acute Disease Progress Note: Labs, UA,UDS, and CXR ordered. At 9:35, pt resting comforably, not in any apparent distress. Blood work review, appears normal. PATIENTG ISMEDCALLY CLEARED FOR PES EVALUATION AND FURTHER TREATMENT/TRANSFER , DISPO. After Pt was seen by PES and case dsicussed with [id number] , admission to detox with Dx: severe opioid and alcohol dependance recommend. Disposition - Disposition Disposition: HOSPITALIZED Disposition Time: 10:46 Condition: STABLE - Clinical Impression Clinical Impression: Opiate dependence, Drug dependence - Scribe Statement The provider has reviewed the documentation as recorded by the Arlene Lucio Provider Attestation All medical record entries made by the Cobyibe were at my direction and personally dictated by me. I have reviewed the chart and agree that the record accurately reflects my personal performance of the history, physical exam, medical decision making, and the department course for this patient. I have also personally directed, reviewed, and agree with the discharge instructions and disposition.
[2017-07-22 09:17] LABS: MEAN CELL VOLUME 96.6 fL (80.0-94.0)
--- NOTE | 2017-07-22 09:22 | RAD ---
Chest x-ray two views History: Detox Comparison: 05/19/2017 Findings: Rounded opacity projecting over the posterior aspect of the chest on the lateral view at the level of the mid thoracic spine measuring 2.7 centimeters of uncertain clinical etiology. Correlation with chest CT may be helpful for further evaluation if clinically indicated. Biapical pleural thickening with upper lobe granulomatous changes. Hyperinflation suggestive for COPD and or emphysematous changes. No gross focal infiltrate or effusion. Heart size within normal limits. Degenerative changes in the spine. Impression: Rounded opacity projecting over the posterior aspect of the chest on the lateral view at the level of the mid thoracic spine measuring 2.7 centimeters of uncertain clinical etiology. Correlation with chest CT may be helpful for further evaluation if clinically indicated. Biapical pleural thickening with upper lobe granulomatous changes. Hyperinflation suggestive for COPD and or emphysematous changes. No gross focal infiltrate or effusion.
[2017-07-22 09:34] LABS: ALB/GLOB RATIO 1.3 (1.0-2.1); ALBUMIN 3.9 g/dL (3.5-5.0); ALT/SGPT 60 U/L (21-72); AST/SGOT 51 U/L (17-59); BLOOD UREA NITROGEN 12 mg/dL (9-20); CALCIUM 8.7 mg/dl (8.6-10.4); GFR AFRICAN-AMERICAN > 60; GFR NON-AFRICAN AMERICAN > 60
[2017-07-22 09:47] LABS: BARBITURATES, UR NEGATIVE (NEGATIVE); PHENCYCLIDINE, UR NEGATIVE (NEGATIVE)
[2017-07-22 10:11] LABS: BENZODIAZEPINES, UR POSITIVE (NEGATIVE); OPIATES, UR POSITIVE (NEGATIVE)
--- NOTE | 2017-07-22 12:17 | PCM.BM ---
<Zee Mares - Last Filed: 07/22/17 12:14> Treatment Plan Problems - Problems identified on initial assessmt potential for opiate withdrawals Date Initiated: 07/22/17 Assessment reference: NA Status: Active potential for alcohol withdrawals Date Initiated: 07/22/17 Assessment reference: NA Status: Active Treatment assets and liabiliti Patient Assests: adapts well, cooperative, ADL independent, negotiates basic needs Patient Liabilities: poor support system, substance abuse, medical problems - Milieu Protocol Maintain good personal hygiene: daily Encourage regular showers, daily Remind patient to perform daily oral care, daily Assist patient to perform ADL's Maintain personal safety: every shift Educate patient to report safety concerns to staff, every shift Monitor environment for contraband/sharps Medication safety: Monitor for expected outcome, potential side effects: every shift, Assess barriers to learning: every shift, Assess readiness for medication education: every shift <Mirela Caldwell - Last Filed: 07/24/17 08:03> Family Contact Family involvement: No known Family/SO - Goals for Treatment Patient goals for treatment: Complete detox and transition to outpatient treatment. Discharge/Continuing Care - Education Needs Education Needs: Patient Medication, Patient Diagnosis/Disease Process, Patient Coping Skills, Patient Anger Management skills, Patient Placement options, Patient Community resources - Discharge Discharge Criteria: No longer exhibiting s/s of withdrawal, Reduction of target symptoms Discharge to:: Home - Treatment Team Participation Patient/Family/SO Statement: 07/24/17 08:04 "I wanna try outpatient after this..." Discussed with Family/SO: No Was Patient/Family/SO present at Treatment Team Meeting: Yes <Fernando Messer - Last Filed: 07/24/17 22:30> - Diagnosis (1) Opiate dependence Status: Acute Interventions: 07/24/17 22:30 * Assess 7x/week regarding severity of withdrawal * Educate regarding risks, benefits, side effects and alternatives of medications * Use Motivational Interviewing for abstinence * Use CBT for relapse prevention * Medication management for withdrawal symptoms * Encourage medication assisted treatment *
[2017-07-22] MEDS ORDERED: Aluminum Hydroxide/Magnesium Hydroxide Susp (30 mL) PO PRN (12:32)
[2017-07-22] MEDS: Vitamins A & D Oint UD Foilpak TOP PRN (21:50)
--- NOTE | 2017-07-22 22:59 | PCM.PSYCH ---
Initial Psychiatric Evaluation - Initial Psychiatric Evaluation Type of Admission: Voluntary Legal Status: Capacity Chief Complaint (in patient's own words): "I want to stop heroin" History of Present Illness and Precipitating Events: The pt is seen, chart reviewed and case discussed. He is a 61 yo AAM, with 2 adult children, lives alone He is here for heroin detox, but he also uses high dose 6 mg/d xanax Heroin is 5 bags by snorting x1 month. He is also taking 30 mg oxy x4 years but lately more heroin than pills Xanax has been for 8 years. He drinks 6 ppd alcohol and smokes 4 cig and some MJ on and off First treatment Past psych hx: Generalized anxiety, no admissions Family psych hx: Denies Medical: Prostate cancer, w possible bone met Current Medications: Active Medications Generic Name Dose Route Start Last Admin Trade Name Freq PRN Reason Stop Dose Admin Acetaminophen 650 mg 07/22/17 12:32 Tylenol 325mg Tab PO Q6H PRN Pain, moderate (4-7) Al Hydrox/Mg Hydrox/Simethicone 30 ml 07/22/17 12:32 Maalox 30 Ml PO TID PRN Indigestion / Heartburn Chlordiazepoxide 25 mg 07/22/17 20:04 07/22/17 21:50 Librium PO 25 mg Q4H PRN Administration Alcohol Withdrawal Chlordiazepoxide 0 mg 07/23/17 22:00 Librium PO 07/27/17 21:59 Q6 KYREE Taper Clonidine HCl 0.1 mg 07/22/17 12:32 Catapres PO Q8 PRN COWS Score More or Equal to 5 Folic Acid 1 mg 07/23/17 10:00 Folic Acid PO DAILY KYREE Gabapentin 100 mg 07/23/17 10:00 Neurontin PO TID KYREE Hydroxyzine HCl 50 mg 07/22/17 12:32 07/22/17 17:53 Atarax PO 50 mg Q6H PRN Administration Anxiety Loperamide HCl 2 mg 07/22/17 12:32 Imodium PO Q8 PRN Diarrhea Methadone HCl 0 mg 07/23/17 10:00 Methadone PO 07/27/17 09:59 Q24H KYREE Taper Multivitamins 1 tab 07/23/17 10:00 Hexavitamin PO DAILY KYREE Ondansetron HCl 4 mg 07/22/17 12:32 Zofran Tab PO Q8 PRN Nausea/Vomiting Thiamine HCl 100 mg 07/23/17 10:00 Vitamin B1 Tab PO DAILY KYREE Trazodone HCl 100 mg 07/22/17 12:32 07/22/17 21:47 Desyrel PO 100 mg HS PRN Administration Insomnia Vitamin A 1 ea 07/22/17 19:49 07/22/17 21:50 Vitamin A & D Oint Ud Foilpak TOP 1 ea BID PRN Administration Dry nasal passages Past Psychiatric History - Past Psychiatric History Previous Treatment History: None Pertinent Medical Hx (Current Medical&Sleep Prob, Allergies): Allergies Allergy/AdvReac Type Severity Reaction Status Date / Time aspirin AdvReac VOMITING Verified 06/09/17 03:20 lactose AdvReac VOMITING Verified 06/09/17 03:20 Dutasteride [Avodart] 0.5 mg PO DAILY #7 capsule 05/13/17 Albuterol HFA [Ventolin HFA 90 mcg/actuation (8 g)] 1 puff IH Q6 #1 inhaler Alprazolam [Xanax] 2 mg PO TID 07/22/17 Budesonide/Formoterol Fumarate [Symbicort] 1 aer IH BID 07/22/17 Oxycodone HCl/Acetaminophen [Percocet 10-325 mg Tablet] 1 each PO TID 07/22/17 Review of Systems - Neurological Neurological: UNREMARKABLE - Psychiatric Psychiatric: Abnormal Sleep Pattern, Anxiety, Difficulty Concentrating, Irritability. absent: Hallucinations, Homicidal Ideation, Memory Loss, Suicidal Ideation Mental Status Examination - Personal Presentation Personal Presentation: Looks stated age - Affect Affect: Constricted - Motor Activity Motor Activity: Calm - Reliability in Providing Information Reliability in Providing Information: Good - Speech Speech: Organized - Mood Mood: Anxious - Formal Thought Process Formal Thought Process: No Impairment - Cognitive Functions Orientation: Person, Place, Situation, Time Sensorium: Alert Attention/Concentration: Attentive Estimate of Intelligence: Average Judgement: Intact, as evidence by: Insight regarding need for hospitalization Memory: Recent intact, as evidence by: Ability to recall events of the day, Remote intact, as evidenced by: Abilit to recall sig. 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 As needed medications Gabapentin for augmentation All risks, benefits and alternatives of medications, including no medications, discussed and the patient understood and agreed. Attend groups and activities Supportive therapy and psychoeducation AR for abstinence CBT for relapse prevention Encourage MAT Refer to rehab or IOP Attend self-help groups as well 34 min Projected ELOS: 5 days Prognosis: good w trertjohn
[2017-07-23] MEDS: Multiple Vitamins Tab PO SCH (10:25)
[2017-07-23] MEDS: Vitamins A & D Oint UD Foilpak TOP PRN (12:51)
[2017-07-23] MEDS ORDERED: Albuterol HFA 90 mcg/actuation (8 g) INH PRN (17:33)
--- NOTE | 2017-07-23 23:46 | PCM.PYCHPN ---
Psychiatric Progress Note - Psychiatric Progress Note Patient seen today, length of contact: 16 min Patient Chief Complaint: "I am much better" Problems Identified/Issues Discussed: The pt is seen, chart reviewed, case discussed with staff. Support given, CBT and LA used briefly No new symptoms reported, improving slowly and needs more time No SEs from medications, risks discussed. After care discussed - wants to leave [facility] "before the Northeaster" (?) Medication Change: Yes (detox changes daily) Medical Record Reviewed: Yes Mental Status Examination - Cognitive Function Orientation: Person, Place, Situation, Time Memory: Intact Attention: WNL Concentration: WNL Association: WNL Fund of Knowledge: WNL - Mood Mood: Anxious - Affect Affect: Constricted - Speech Speech: Appropriate - Formal Thought Process Formal Thought Process: No Impairment - Suicidal Ideation Suicidal Ideation: No - Homicidal Ideation Homicidal Ideation: No Goal/Treatment Plan - Goal/Treatment Plan Need for Continued Stay: Discharge may exacerbated symptoms, Severe functional impairment Progress Toward Problem(s) and Goals/Treatment Plan: Methadone detox Librium detox, 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 As needed medications Gabapentin for augmentation All risks, benefits and alternatives of medications, including no medications, discussed and the patient understood and agreed. Attend groups and activities Supportive therapy and psychoeducation LA for abstinence CBT for relapse prevention Encourage MAT Refer to rehab or IOP Attend self-help groups as well
[2017-07-24] MEDS: Vitamins A & D Oint UD Foilpak TOP PRN ×2 (04:02→09:29)
[2017-07-24] MEDS: Multiple Vitamins Tab PO SCH (09:27)
--- NOTE | 2017-07-24 13:17 | PCM.PYCHPN ---
Psychiatric Progress Note - Psychiatric Progress Note Patient seen today, length of contact: 16 min Patient Chief Complaint: "Better" Problems Identified/Issues Discussed: The pt is seen, chart reviewed, case discussed with staff. The pt is compliant with medications and reports no side-effects. Symptoms are improving but needs more time to stabilize. After care discussed, support and psychoeducation given. Wants to leave tomorrow Medication Change: Yes (detox changes daily) Medical Record Reviewed: Yes Mental Status Examination - Cognitive Function Orientation: Person, Place, Situation, Time Memory: Intact Attention: WNL Concentration: WNL Association: WNL Fund of Knowledge: WNL - Mood Mood: Anxious - Affect Affect: Constricted - Speech Speech: Appropriate - Formal Thought Process Formal Thought Process: No Impairment - Suicidal Ideation Suicidal Ideation: No - Homicidal Ideation Homicidal Ideation: No Goal/Treatment Plan - Goal/Treatment Plan Need for Continued Stay: Discharge may exacerbated symptoms, Severe functional impairment Progress Toward Problem(s) and Goals/Treatment Plan: Methadone detox Librium detox, with 50 mg er dose due to mcfp and high dose xanax use. As needed medications Gabapentin for augmentation All risks, benefits and alternatives of medications, including no medications, discussed and the patient understood and agreed. Attend groups and activities Supportive therapy and psychoeducation AR for abstinence CBT for relapse prevention Encourage MAT Refer to rehab or IOP Attend self-help groups as well
[2017-07-25] MEDS: Vitamins A & D Oint UD Foilpak TOP PRN (08:09)
--- NOTE | 2017-07-25 08:48 | PCM.PYCHDC ---
Mental Status Examination - Mental Status Examination Orientation: Person Discharge Summary - Discharge Note Consultations:: List each consultation separately and include: 1. Reason for request. 2. Findings. 3. Follow-up Summary of Hospital Course include:: 1. Description of specific treatment plan utilized for patients during their course of treatmen. 2. Summarize the time- course for resolution of acute symptoms and/or regressed behaviors. 3. Describe issues identified and worked on during hospitalization. 4. Describe medication utilized. 5. Describe medical problems identified and treated. 6. Reassessment of suicide risk Summary of Hospital Course: The pt is seen, chart reviewed and case discussed. He is a 61 yo AAM, with 2 adult children, lives alone He is here for heroin detox, but he also uses high dose 6 mg/d xanax Heroin is 5 bags by snorting x1 month. He is also taking 30 mg oxy x4 years but lately more heroin than pills Xanax has been for 8 years. 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 As needed medications Gabapentin for augmentation All risks, benefits and alternatives of medications, including no medications, discussed and the patient understood and agreed. Attend groups and activities Supportive therapy and psychoeducation HI for abstinence CBT for relapse prevention Encourage MAT Refer to rehab or IOP Attend self-help groups as well Prescriptions/Medication Reconciliation: Fluticasone Propionate [Flonase] 1 spray SHELLY DAILY #1 bottle Gabapentin [Neurontin] 100 mg PO TID #90 cap Multivitamins [Hexavitamin] 1 tab PO DAILY #30 tab traZODone [Desyrel] 100 mg PO HS PRN #30 tab PRN Reason: Insomnia
[2017-07-25] MEDS: Multiple Vitamins Tab PO SCH (09:22)
[2017-07-25 09:40] VITALS: BP 115/76; PULSE 88; RESP 19; TEMP 97.8; O2SAT 99
[2017-07-25] MEDS ORDERED: Fluticasone Nasal 50 mcg/Spray NAS SCH (10:00)
--- NOTE | 2017-07-25 22:48 | CARD ---
APPROVED REPORT EKG Measurement Heart [id number] <Conclusion> Normal sinus rhythm Nonspecific T wave abnormality Abnormal ECG
== END 2017-07-25 09:30 | disposition home or self-care (01) | DRG 745 ==
LOC: C.ER 07:50 → C.7D 10:45
PROVIDERS: ADMIT Psychiatry & Neurology Psychiatry; ATTEND Psychiatry & Neurology Psychiatry
PROC: HZ2ZZZZ Detoxification Services for Substance Abuse Treatment (ICD-10-PCS; principal; 2017-07-22)
DX: F11.23 Opioid dependence with withdrawal (principal); F12.90 Cannabis use, unspecified, uncomplicated; F41.1 Generalized anxiety disorder; J45.909 Unspecified asthma, uncomplicated; Z87.891 Personal history of nicotine dependence; Z85.46 Personal history of malignant neoplasm of prostate; F19.10 Other psychoactive substance abuse, uncomplicated; F14.10 Cocaine abuse, uncomplicated; Z68.1 Body mass index [BMI] 19.9 or less, adult

== ENCOUNTER 2018-01-02 09:15 | Day surgery (SDC) | payer OTHER ==
[2018-01-02 09:48] VITALS: RESP 18
[2018-01-02] MEDS ORDERED: Propofol 10 mg/ml Inj (20 ML) ONE ×2 (11:42→11:48)
[2018-01-02] MEDS ORDERED: Albuterol HFA 90 mcg/actuation (8 g) ONE (11:47)
[2018-01-02] MEDS ORDERED: cefTRIAXone IV 1 gm in Dextros 50 ML IVPB ONE (11:48)
[2018-01-02] MEDS ORDERED: Oxycodone/Acetaminophen 5/325 mg Tab PO PRN (12:12)
[2018-01-02] MEDS ORDERED: HYDROmorphone 0.5 mg/0.5 ml ISec IVP PRN (12:13)
[2018-01-02] MEDS ORDERED: HYDROmorphone 0.5 mg/0.5 ml ISec ONE (12:36)
[2018-01-02 13:29] VITALS: BP 112/70; PULSE 81; TEMP 97; O2SAT 100
--- NOTE | 2018-01-02 23:47 | HP ---
Copied To: Charles Lowe MD Attending MD: Charles Lowe MD UROLOGY ADMISSION HISTORY AND PHYSICAL HISTORY OF PRESENT ILLNESS: Mr. Renner is being admitted now for a cystoscopy and retrograde pyelogram and possible bladder biopsy. A very pleasant gentleman, not perfectly compliant. He appears to be dependent upon narcotics. He has metastatic prostate cancer. He also sees an oncologist. For more end, he is getting voiding dysfunction. Decreased force of stream, nocturia, irritative and obstructive complaints. He is here today for a cystoscopy. We discussed it for tremendously on time to rule out any intraurethral problems or bladder abnormalities. Regarding his chronic use of narcotics, I discussed the patient. He says every time he tries to get to a pain medicine doctor, it is difficult for him. In the meantime, we will be giving him but I am asking him to re-evaluate as I am also assessing the amount of narcotics he gets. I discussed with him at great length and including today the patient is constantly requesting narcotics. I constantly asked him to evaluate, and we will in the middle discuss this further. PAST MEDICAL AND SURGICAL HISTORY: No other change. SOCIAL HISTORY: EtOH. He lives with his . His comes to the office with him occasionally. He recently has traveled to his family in [place]. MEDICATIONS: See chart. ALLERGIES: SEE CHART. His oncologist is a doctor at [facility]. PHYSICAL EXAMINATION: GENERAL: A well-nourished male, in no apparent distress. VITAL SIGNS: Within normal limits included in the chart. LUNGS: Clear. HEART: Normal S1, S2. ABDOMEN: Overall soft. Nontender. No flank mass appreciated. GENITOURINARY: Normal phallus without discharge. No testicular mass. RECTAL: A 30 g prostate, soft and smooth. is interesting for a prostate cancer, not overtly firm. DIAGNOSES: Prostate cancer with metastatic disease, hematuria, voiding dysfunction, decreased force of stream, irritative and obstructive complaints. PLAN: We are going to plan for a cystoscopy, possible biopsy, possible internal optical urethrotomy. The patient may have urethral stricture disease. May have bladder malignancy, many possibilities. Actually regarding today's workup in general, we are going to plan for a cystoscopy with antibiotic prophylaxis. Regarding his chronic use of medications particularly pain medications, I have been discussing this with the patient at length. It is very difficult him, but I am concerned that he does take heavy dose of the narcotics. On the other hand, he does have metastatic prostate cancer. Further plans will follow depending what we find clinically. Risks, benefits and alternative were discussed with the patient at length. We plan to proceed then. Charles Lwoe MD
--- NOTE | 2018-01-03 06:49 | OP ---
Copied To: Charles Lowe MD Attending MD: Charles Lowe MD PROCEDURE DATE: 01/02/2018 UROLOGY OPERATIVE REPORT PREOPERATIVE DIAGNOSES: Voiding dysfunction, decreased flow of stream, nocturia, irritative and obstructive complaints. POSTOPERATIVE DIAGNOSES: Voiding dysfunction, decreased flow of stream, nocturia, irritative and obstructive complaints, and also meatal stenosis. PROCEDURES: Meatal dilation and cystoscopy. SURGEON: Charles Lowe MD BLOOD LOSS: Less than 10 mL. COMPLICATIONS: No complications. OPERATIVE FINDINGS: 1. Meatus is tight and we dilated to 22-Kyrgyz. 2. The remainder of the anterior urethra was normal. 3. The verumontanum is moderately visually occlusive. 4. The bladder is moderately trabeculated. Everything else is normal. Clear efflux in the orifices. INDICATIONS: See history and physical for details. A pleasant gentleman. He happens to be a narcotic abuser. He comes in for Percocet all the time. He happens to have metastatic prostate cancer. He sees me, he sees Oncology, what he does not see is any pain management. He has also voiding dysfunction, I believe, it has been getting worse, irritative and obstructive urinary complaints, mostly decreased flow of stream, nocturia, urgency. He is here today for the above-listed procedures. DESCRIPTION OF PROCEDURE: After obtaining informed consent, the patient was placed on the table. Routine monitor was placed. Time-out was called. We confirmed the patient positioning. The procedure continues with the cystoscope via the urethra but we were not able to get into the meatus without dilating, so we used the small dilator obturator and then the 22-obturator, so we dilated up to 22-Kyrgyz. Once we did this, we were able to get the scope in; but again, this was with some tightness and difficulty. The remainder of the urethra anteriorly normal. No stricture. The verumontanum is visually occlusive, 2 to 3 cm. Moderately trabeculated bladder. There was a little , pictures taken and saved. This is on patient's left side of the bladder wall. Right side is clean. The bladder was inspected carefully. There was no bladder cancer identified. Bladder was emptied, cystoscope removed. The patient tolerated the procedure well without complication. Rectal exam, interestingly not an overly firm prostate. The patient tolerated the procedure well without complication. Again note, we are going to again discuss with the patient reassessment evaluations, particularly in many directions. Charles Lowe MD
== END 2018-01-02 13:44 | disposition home or self-care (01) ==
LOC: C.SDS 09:15
PROVIDERS: ATTEND Urology
DX: N35.9 Urethral stricture, unspecified (principal); R31.9 Hematuria, unspecified; C61 Malignant neoplasm of prostate; F11.10 Opioid abuse, uncomplicated; R35.1 Nocturia; N32.89 Other specified disorders of bladder; C79.9 Secondary malignant neoplasm of unspecified site
CPT/HCPCS: 52281; J0696; J1170; J1580

== ENCOUNTER 2018-07-07 12:41 | Emergency (ER) | payer OTHER ==
[2018-07-07 13:10] VITALS: BP 148/85; PULSE 74; RESP 16; O2SAT 98
[2018-07-07] MEDS ORDERED: guaiFENesin 100 mg/5 ml Syrup UD PO STA (14:14)
--- NOTE | 2018-07-07 14:15 | C.PDOC ---
History Of Present Illness 57 year old female presents to ED with complaint of dry non- productive cough for a week. Patient is also requesting detox for heroin and alcohol abuse. Patient reports using 4-5 bags of heroin per day. Patient denies nausea, vomiting, and abdominal pain. Time Seen by Provider: 07/07/18 14:06 Chief Complaint (Nursing): Cough, Cold, Congestion History Per: Patient History/Exam Limitations: no limitations Onset/Duration Of Symptoms: Days (7 days) Current Symptoms Are (Timing): Still Present Modifying Factor(s): Alcohol, Other (heroin) Associated Symptoms: Other (dry non-productive cough) Past Medical History Reviewed: Historical Data, Nursing Documentation, Vital Signs Vital Signs: Last Vital Signs Temp Pulse 74 07/07/18 13:05 Resp 16 07/07/18 13:05 BP 148/85 07/07/18 13:05 Pulse Ox 98 07/07/18 13:05 - Medical History PMH: Arthritis, Asthma, Back Problems Denies: Diabetes, Hepatitis, HIV, HTN, Chronic Kidney Disease, Seizures, Sexually Transmitted Disease Surgical History: No Surg Hx - [facility] Procedures APPLICATION OF SPLINT (11/24/12) DETOXIFICATION SERVICES FOR SUBSTANCE ABUSE TREATMENT (07/22/17) INDIV PSYCHOTHERAPY FOR SUBSTANCE ABUSE TREATMENT, SUPPORT (12/13/16) INDIV PSYCHOTHERAPY FOR SUBSTANCE ABUSE, PSYCHOEDUCATION (12/13/16) PHARMACOTHERAPY FOR SUBSTANCE ABUSE TREATMENT, ANTABUSE (12/13/16) PSYCHIAT DRUG THERAP NEC (03/10/07) Family History: States: Unknown Family Hx - Social History Hx Tobacco Use: Yes Hx Alcohol Use: Yes Hx Substance Use: Yes - Immunization History Hx Tetanus Toxoid Vaccination: No Hx Influenza Vaccination: No Hx Pneumococcal Vaccination: No Review Of Systems Constitutional: Negative for: Fever, Chills, Weakness Cardiovascular: Negative for: Chest Pain, Palpitations Respiratory: Positive for: Cough (dry). Negative for: Sputum Gastrointestinal: Negative for: Nausea, Vomiting, Abdominal Pain Neurological: Negative for: Weakness, Numbness, Dizziness Physical Exam - Physical Exam Appears: Well, Non-toxic, No Acute Distress Skin: Normal Color, Warm, Dry Head: Atraumatic, Normacephalic Eye(s): bilateral: Other (pinpoint pupils) Neck: Other (shotty lymphadenopathy on left side of the neck) Chest: Symmetrical, No Deformity Respiratory: No Accessory Muscle Use Extremity: Capillary Refill (< 2 seconds) Extremity: Bilateral: Atraumatic, Normal Color And Temperature Neurological/Psych: Oriented x3, Normal Speech, Normal Cognition ED Course And Treatment O2 Sat by Pulse Oximetry: 98 (RA) Progress Note: Patient given Robitussin PO. Upon reassessment, patient is resting comfortably, in no distress, and is stable for discharge. Patient was advised to follow-up for detox pre-screen. Patient is advised to return to ED if symptoms persist or worsen. Medical Decision Making Medical Decision Making: seeking detox for etoh/heroine 4 bags/day no detox avail today opt f/u for pre-screen mild viral syndrome Disposition Doctor Will See Patient In The: Office Counseled Patient/Family Regarding: Studies Performed, Diagnosis - Disposition Referrals: [facility] [Outside] [facility] [Outside] [facility] [Outside] Mitchel Hoover MD [Staff Provider] - Disposition: HOME/ ROUTINE Disposition Time: 14:15 Condition: GOOD Additional Instructions: seek pre-screen for heroine abuse/detox Promethazine tabs or cold/flu meds as per package instructions Prescriptions: Promethazine [Phenergan Tab] 25 mg PO QID PRN #10 tab PRN Reason: Cough Instructions: Viral Syndrome (DC), Opioid Use Disorder Forms: [facility] ([place]) - Clinical Impression Clinical Impression: Viral disease, Opiate dependence - Scribe Statement The provider has reviewed the documentation as recorded by the Scribe (Paula Mehta) All medical record entries made by the Scribe were at my direction and personally dictated by me. I have reviewed the chart and agree that the record accurately reflects my personal performance of the history, physical exam, medical decision making, and the department course for this patient. I have also personally directed, reviewed, and agree with the discharge instructions and disposition.
[2018-07-07] MEDS ORDERED: guaiFENesin 100 mg/5 ml Syrup UD ONE (14:22)
== END 2018-07-07 14:28 | disposition home or self-care (01) ==
LOC: C.ER 12:41
DX: B34.9 Viral infection, unspecified (principal); F11.20 Opioid dependence, uncomplicated